=== PATIENT | male | born 1960 | race Caucasian/White ===

== ENCOUNTER 2018-04-09 08:23 | Inpatient (IN) | payer OTHER ==
[2018-04-09 09:36] VITALS: BMI 25.7
--- NOTE | 2018-04-09 10:19 | HP ---
CIWA Score Nausea/Vomitin Muscle Tremors: 2 Anxiety: 2 Agitation: 3 Paroxysmal Sweats: 3 Orientation: 0-Oriented Tacttile Disturbances: 0-None Auditory Disturbances: 0-None Visual Disturbances: 0-None Headache: 0-None Present CIWA-Ar Total Score: 12 - Admission Criteria [facility] Guidelines: Admission for Medically Managed Detox: Requires at least one of the followin. CIWA greater than 12 2. Seizures within the past 24 hours 3. Delirium tremens within the past 24 hours 4. Hallucinations within the past 24 hours 5. Acute intervention needed for co occurring medical disorder 6. Acute intervention needed for co occurring psychiatric disorder 7. Severe withdrawal that cannot be handled at a lower level of care (continued vomiting, continued diarrhea, abnormal vital signs) requiring intravenous medication and/or fluids 8. Patient presents the following: Acute intervention needed for co-occurring med or psych disorder (pt reports blackouts, has co-morbities. is irritable at this time, last drink was yesterday before he went to the ED and states he "drinks round the clock".) Admission Criteria Met: Admission criteria met Admission ROS [facility] Chief Complaint: "I am here for detox from alcohol" Allergies/Adverse Reactions: Allergies Allergy/AdvReac Type Severity Reaction Status Date / Time No Known Allergies Allergy Verified 04/09/18 08:42 History of Present Illness: 57 y/o male with a long hx of alcohol addiction presents today for detox. Pt is A & O x 3 at this time, was last here in December 2017 for detox (6N) but states he does not remember that visit. Pt also denies previous detox experiences. Pt was at [facility] last night for alcohol intoxication from where he was brought here by Erik. pt's tachy (HR 106), denies current chest pains, discomfort nor palpitations Pt denies hx of withdrawal-induced seizures but endorses blackouts with his last blackout "a couple of months" ago. pt's utox positive for Bzo; d/c paperwork confirms he got valium and librium at [facility] Pt denies prior nor current suicidal ideation nor attempt. Med hx - Lung CA, MS, L sided defibrilator-pacemaker,,DM 2, HTN, High cholesterol, COPD, Hesitancy Psych hx - Bipolar, Depression, Anxiety (last saw his psych MD about a month ago). Pt is on meds for these conditions and states he is complaint with his meds. CIWA score of 12, pt has co-morbidities, is irritable at this time, last drink was yesterday before he went to the ED and states he "drinks round the clock". Exam Limitations: No Limitations (irritable) - Ebola screening Have you traveled outside of the country in the last 21 days: No Have you had contact with anyone from an Ebola affected area: No Have you been sick,other than usual withdrawal symptoms: No - Review of Systems Constitutional: No Symptoms Reported EENT: reports: Dental Problems (missing upper teeth), Other (involuntary tongue movements) Respiratory: reports: No Symptoms reported Cardiac: reports: Irregular Heart Rate GI: reports: No Symptoms Reported : reports: No Symptoms Reported Musculoskeletal: reports: Back Pain, Other (herniated disc - lower vertebrae) Integumentary: reports: No Symptoms Reported, Dryness Neuro: reports: No Symptoms reported Endocrine: reports: No Symptoms Reported Hematology: reports: No Symptoms Reported Psychiatric: reports: Orientated x3, Agitated Other Systems: Reviewed and Negative Patient History - Patient Medical History Hx Anemia: No Hx Asthma: No Hx Chronic Obstructive Pulmonary Disease (COPD): Yes Hx Cancer: Yes (Lung CA) Hx Cardiac Disorders: Yes (pace ) Hx Congestive Heart Failure: No Hx Hypertension: Yes Hx Hypercholesterolemia: Yes Hx Pacemaker: Yes (LAST CHECKED 2 MONTHS AGO) HX Cerebrovascular Accident: No Hx Seizures: No Hx Dementia: No Hx Diabetes: Yes (f/a 234 mg/dL) Hx Gastrointestinal Disorders: No Hx Liver Disease: No Hx Genitourinary Disorders: No Hx Sexually Transmitted Disorders: No Hx Renal Disease (ESRD): No Hx Thyroid Disease: No Hx Human Immunodeficiency Virus (HIV): No Hx Hepatitis C: No Hx Depression: Yes Hx Suicide Attempt: No Hx Bipolar Disorder: Yes Hx Schizophrenia: No - Patient Surgical History Past Surgical History: Yes Hx Neurologic Surgery: No Hx Cataract Extraction: No Hx Cardiac Surgery: Yes (PACE MAKER 2011) Hx Lung Surgery: No Hx Breast Surgery: No Hx Breast Biopsy: No Hx Abdominal Surgery: No Hx Appendectomy: Yes Hx Cholecystectomy: No Hx Genitourinary Surgery: No Hx Section: No Hx Orthopedic Surgery: Yes (LEFT HIP) Hx Hysterectomy: No Other Surgical History: REPAIR OF PYLOR STENOSIS Anesthesia Reaction: No - PPD History Previous Implant?: Yes Documented Results: Negative w/proof Implanted On Prior [facility] Admission?: Yes Date: 12/19/17 PPD to be Administered?: No - Reproductive History Patient is a Female of Child Bearing Age (11 -55 yrs old): No Patient : No - Smoking Cessation Smoking history: Current every day smoker Have you smoked in the past 12 months: Yes Aproximately how many cigarettes per day: 20 Cigars Per Day: 0 Hx Chewing Tobacco Use: No Initiated information on smoking cessation: Yes 'Breaking Loose' booklet given: 04/09/18 - Substance & Tx. History Hx Alcohol Use: Yes Hx Substance Use: No Substance Use Type: Alcohol Hx Substance Use Treatment: Yes - Substances Abused Alcohol Route: Oral Frequency: Daily Amount used: 20 24oz cans of beers Age of first use: 15 Date of Last Use: 04/08/18 Family Disease History - Family Disease History Family Disease History: Diabetes: Father (), Heart Disease: Father, Other: Father, Brother (ALCOHOLIC) Admission Physical Exam S - Vital Signs Vital Signs: Vital Signs - 24 hr 04/09/18 08:44 Temperature 97.3 F L Pulse Rate 106 H Respiratory 20 Rate Blood Pressure 132/72 - Physical General Appearance: Yes: Disheveled, Moderate Distress, Irritable HEENTM: Yes: Other (missing upper teeth, has discolored teeth) Respiratory: Yes: Lungs Clear, No Respiratory Distress, No Accessory Muscle Use Neck: Yes: No masses,lesions,Nodules, Trachea in good position Breast: Yes: Breast Exam Deferred Cardiology: Yes: Tachycardia, Irregularly Irregular (has a defibrilator and a pacemaker) Abdominal: Yes: Non Tender, Distended, Other (skin graft to upper area, echymosis to LLQ s/p subQ injections) Genitourinary: Yes: Hesitency (on flomax) Back: Yes: Normal Inspection Musculoskeletal: Yes: full range of Motion, Gait Steady Extremities: Yes: Normal Capillary Refill, Normal Inspection, Normal Range of Motion Neurological: Yes: Alert, Normal Response Integumentary: Yes: Dry (dry flaky skin) Lymphatic: Yes: Other (on blood thinner) - Diagnostic (1) Alcohol-induced mood disorder Current Visit: No Status: Acute (2) Alcohol-induced sleep disorder Current Visit: No Status: Acute (3) DM2 (diabetes mellitus, type 2) Current Visit: No Status: Acute (4) Uncomplicated alcohol dependence Current Visit: No Status: Acute (5) AICD (automatic cardioverter/defibrillator) present Current Visit: No Status: Chronic (6) Diabetes Current Visit: No Status: Chronic Qualifiers: Diabetes mellitus type: type 2 (7) HLD (hyperlipidemia) Current Visit: No Status: Chronic Qualifiers: Hyperlipidemia type: unspecified Qualified Code(s): E78.5 - Hyperlipidemia , unspecified (8) HTN (hypertension) Current Visit: No Status: Chronic Qualifiers: Hypertension type: essential hypertension Qualified Code(s): I10 - Essential (primary) hypertension (9) History of myocardial infarction Current Visit: No Status: Chronic (10) Nicotine dependence Current Visit: No Status: Chronic Qualifiers: Nicotine product type: cigarettes Substance use status: uncomplicated Qualified Code(s): F17.210 - Nicotine dependence, cigarettes, uncomplicated (11) Pacemaker Current Visit: No Status: Chronic (12) Substance induced mood disorder Current Visit: No Status: Suspected Cleared for Admission S - Detox or Rehab [facility] Level of Care: Medically Managed Detox Regimen/Protocol: Librium [facility] Breath Alcohol Content Breath Alcohol Content: 0 Urine Drug Screen - Results Drug Screen Negative: No Urine Drug Screen Results: BZO-Benzodiazepines
[2018-04-09] MEDS ORDERED: MAGNESIUM CITRATE 300 ML BOTTLE PO PRN (11:03)
[2018-04-09] MEDS ORDERED: IBUPROFEN 400 MG TABLET (FP) PO PRN (11:03)
[2018-04-09] MEDS ORDERED: MAG HYDROX/AL HYDROX/SIMETH 30 ML UNIT-DOSE CUP PO PRN (11:03)
[2018-04-09] MEDS ORDERED: LOPERAMIDE HCL 2 MG CAPSULE PO PRN (11:03)
[2018-04-09] MEDS ORDERED: chlordiazePOXIDE HCL 25 MG CAPSULE PO PRN (11:03)
[2018-04-09] MEDS ORDERED: MENTHOL/PHENOL 1 EACH UD MM PRN (11:03)
[2018-04-09] MEDS ORDERED: guaiFENesin/D-METHORPHAN HB 10 ML UNIT-DOSE CUPS PO PRN (11:03)
[2018-04-09] MEDS ORDERED: NICOTINE POLACRILEX 2 MG GUM BC PRN (11:03)
[2018-04-09] MEDS ORDERED: MAGNESIUM HYDROX 2400MG/30ML ORAL SUSPENSION 30 ML CUP PO PRN (11:03)
[2018-04-09] MEDS ORDERED: P-EPHED 60MG/TRIPROLIDI 2.5MG TABLET PO PRN (11:03)
[2018-04-09] MEDS ORDERED: PATIENT'S OWN MEDICATION (NON-FORMULARY) (Selenium Sulfide 1 APPLIC) TP SCH (11:30)
[2018-04-09] MEDS ORDERED: PATIENT'S OWN MEDICATION (NON-FORMULARY) (Lisinopril [Zestril] 2.5 MG) PO SCH (11:30)
--- NOTE | 2018-04-09 11:31 | PN ---
[facility] Progress Note Note: motrin prn discontinued as pt is on plavix and ASA for cardiac condition. Gabapentin and Tylenol prn for pain. Psych consult re- pt's Bipolar/schizo/depression/anxiety hx and for continuation of pt's psych meds
[2018-04-09] MEDS: PANTOPRAZOLE 40 MG TABLET (FP) PO SCH ×2 (13:01→22:08)
[2018-04-09] MEDS: ASPIRIN COATED 81 MG TABLET.EC PO SCH (13:01)
[2018-04-09] MEDS: GABAPENTIN 300 MG CAPSULE (FP) PO SCH ×2 (13:01→22:08)
[2018-04-09] MEDS: CLOPIDOGREL BISULFATE 75 MG TABLET (FP) PO SCH (13:01)
[2018-04-09] MEDS: chlordiazePOXIDE HCL 25 MG CAPSULE PO SCH ×3 (13:01→22:08)
[2018-04-09] MEDS: LIDOCAINE 5% TOPICAL PATCH TP SCH (13:06)
[2018-04-09] MEDS: NICOTINE 21 MG/24 HOURS TOPICAL PATCH TD SCH (13:11)
[2018-04-09] MEDS ORDERED: SELENIUM SULFIDE 2.5% LOTION 4 OZ. TP SCH (13:45)
[2018-04-09] MEDS: INSULIN SLIDING SCALE (NOVOLOG) 1 VIAL SQ SCH ×2 (17:07→22:37)
[2018-04-09] MEDS: metFORMIN HCL 500 MG TABLET (FP) PO SCH (17:10)
[2018-04-09 18:10] LABS: URINE APPEARANCE CLEAR; URINE BILIRUBIN NEGATIVE (<2.0 mg/dL); URINE COLOR STRAW; URINE GLUCOSE (UA) 1+ (NEGATIVE); URINE KETONE NEGATIVE (NEGATIVE); URINE LEUK ESTERASE NEGATIVE (NEGATIVE); URINE NITRITE NEGATIVE (NEGATIVE); URINE PROTEIN NEGATIVE (NEGATIVE); URINE UROBILINOGEN NEGATIVE mg/dL (0.2-1.0)
[2018-04-09] MEDS: TAMSULOSIN HCL 0.4 MG CAP PO SCH (22:06)
[2018-04-09] MEDS: THIAMINE HCL 100 MG TABLET (FP) PO SCH (22:06)
[2018-04-09] MEDS: CARVEDILOL 3.125 MG TABLET (FP) PO SCH ×2 (22:07)
[2018-04-09] MEDS: ATORVASTATIN CA 20 MG TABLET (FP) PO SCH (22:08)
[2018-04-09] MEDS: SELENIUM SULFIDE 2.5% LOTION 4 OZ. TP SCH (22:10)
[2018-04-10] MEDS: chlordiazePOXIDE HCL 25 MG CAPSULE PO SCH ×4 (05:43→22:02)
[2018-04-10] MEDS: GABAPENTIN 300 MG CAPSULE (FP) PO SCH ×3 (05:43→21:28)
[2018-04-10] MEDS: metFORMIN HCL 500 MG TABLET (FP) PO SCH ×2 (07:04→17:15)
[2018-04-10] MEDS: INSULIN SLIDING SCALE (NOVOLOG) 1 VIAL SQ SCH ×5 (07:05→21:32)
[2018-04-10 10:18] LABS: HEMATOCRIT 29.2 % (35.4-49); HEMOGLOBIN 8.9 GM/dL (11.7-16.9); MCH 22.7 pg (25.7-33.7); MCHC 30.4 g/dl (32.0-35.9); MEAN CELL VOLUME 74.5 fl (80-96); MEAN PLT VOLUME 8.4 fl (7.5-11.1); PLATELET COUNT 198 K/MM3 (134-434); RBC 3.92 M/mm3 (4.00-5.60); RDW 16.9 % (11.9-15.9)
[2018-04-10 10:33] LABS: ALK PHOS 112 U/L (45-117); ANION GAP 7 MMOL/L (8-16); BILIRUBIN,TOTAL 0.2 mg/dL (0.2-1); BLOOD UREA NITROGEN 17 mg/dL (7-18); CALCIUM 8.8 mg/dL (8.5-10.1); CHLORIDE 103 mmol/L (98-107); CO2 27 mmol/L (21-32); CREATININE 0.5 mg/dL (0.55-1.3); GLUCOSE,RANDOM 159 mg/dL (74-106); POTASSIUM 3.8 mmol/L (3.5-5.1); SGOT/AST 14 U/L (15-37); SGPT/ALT 25 U/L (13-61); SODIUM 138 mmol/L (136-145); TOT PROT 6.2 g/dl (6.4-8.2)
[2018-04-10] MEDS: ASPIRIN COATED 81 MG TABLET.EC PO SCH (10:35)
[2018-04-10] MEDS: CLOPIDOGREL BISULFATE 75 MG TABLET (FP) PO SCH (10:35)
[2018-04-10] MEDS: PANTOPRAZOLE 40 MG TABLET (FP) PO SCH (10:35)
[2018-04-10] MEDS: PRENATAL VITAMINS W/ FOLIC ACID TABLET (FP) PO SCH (10:35)
[2018-04-10] MEDS: LISINOPRIL 5 MG TABLET (FP) PO SCH (10:36)
[2018-04-10] MEDS: NICOTINE 21 MG/24 HOURS TOPICAL PATCH TD SCH (10:59)
[2018-04-10] MEDS: SELENIUM SULFIDE 2.5% LOTION 4 OZ. TP SCH ×2 (11:01→21:31)
[2018-04-10] MEDS: CARVEDILOL 3.125 MG TABLET (FP) PO SCH ×2 (11:19→21:26)
[2018-04-10] MEDS: LIDOCAINE 5% TOPICAL PATCH TP SCH (11:19)
--- NOTE | 2018-04-10 13:03 | CONSULT ---
[facility] Psychiatric Consult - Data Date of interview: 04/10/18 Admission source: [facility] Identifying data: Readmission to [facility] for this 57 y/o male seeking detoxification treatment, on , for alcohol dependence. 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 Substance Abuse History: Confirmed by the patient in this interview. Details in current [facility] report : Smoking history: Current every day smoker. Have you smoked in the past 12 months: Yes. Aproximately how many cigarettes per day: 20. Cigars Per Day: 0. Hx Chewing Tobacco Use: No. Initiated information on smoking cessation: Yes. 'Breaking Loose' booklet given: 04/09/18. - Substance & Tx. History. Hx Alcohol Use: Yes. Hx Substance Use: No. Substance Use Type : Alcohol. Hx Substance Use Treatment: Yes. - Substances Abused. Alcohol. Route: Oral. Frequency: Daily. Amount used: 20 24oz cans of beers. Age of first use: 15. Date of Last Use: 04/08/18 Medical History: Dyslipidemia, lung cancer, diabetes mellitus, hypertension, COPD, history of myocardial infarction (stent placement + pacemaker/ defibrillator in situ), antecedent of appendectomy and a history surgery ( pyloric stenosis) + orthosurgery (fracture left hip). Psychiatric History: No reported history of psychiatric hospitalizations. Patient admits to the diagnosis of Bipolar Disorder. Mr Soni is noted as an indifferent, irritable and hostile historian. " I don't know the names of my psychiatric medications. I see a psychiatrist at the [facility]. I take a lot of medications ". Review of pharmacy claims of 03/20/18 + 03/30/18 yields evidence of refills for seroquel 400 mg/hs # 30 days + remeron 7.5 mg/hs # 30 days + prozac 40 mg # 30 days. Patient denies history of suicide attempts. Physical/Sexual Abuse/Trauma History: Not discussed. Additional Comment: Urine Drug Screen Results: BZO-Benzodiazepines. Noted. Mental Status Exam - Mental Status Exam Alert and Oriented to: Time, Place, Person Cognitive Function: Grossly Intact Patient Appearance: Unkempt, Disheveled (tattoos on lrft arm + right forearm) Mood: Hostile, Nervous, Withdrawn, Irritable Affect: Mood Congruent, Constricted Patient Behavior: Fatigued, Cooperative (marginally cooperative) Speech Pattern: Clear Voice Loudness: Normal Thought Process: Goal Oriented Hallucinations: Denies Suicidal Ideation: Denies Homicidal Ideation: Denies Insight/Judgement: Poor Sleep: Poorly, Difficulty falling asleep Appetite: Good Muscle strength/Tone: Normal Gait/Station: Normal Psychiatric Findings - Problem List ([place] 1, 2,3) (1) Alcohol dependence with uncomplicated withdrawal Current Visit: Yes Status: Acute (2) Nicotine dependence Current Visit: Yes Status: Acute Qualifiers: Nicotine product type: cigarettes Substance use status: uncomplicated Qualified Code(s): F17.210 - Nicotine dependence, cigarettes, uncomplicated (3) Substance induced mood disorder Current Visit: Yes Status: Acute (4) Bipolar disorder Current Visit: Yes Status: Chronic (5) Insomnia Current Visit: Yes Status: Acute - Initial Treatment Plan Initial Treatment Plan: Psychoeducation. Sleep hygiene. Detoxification in progress. Medications verified via review of pharmacy claims (see psychiatric history section). Will restart patient with seroquel 200 mg po hs (reduced) + remeron 7.5 mg po hs. Side effects/benefits of both drugs are discussed with the patient. Agrees to this careplan. Consent (verbal) given to MD. Titration of seroquel to 400 mg/hs will follow if no oversedation in next 24-48 hours. Observation.
[2018-04-10] MEDS: hydrOXYzine PAMOATE 25 MG CAPSULE (FP) PO PRN ×2 (15:21→19:59)
--- NOTE | 2018-04-10 16:00 | PN ---
[facility] CIWA - CIWA Score Nausea/Vomitin-No Nausea/No Vomiting Muscle Tremors: 4-Moderate,w/Arms Extend Anxiety: 3 Agitation: 3 Paroxysmal Sweats: 3 Orientation: 0-Oriented Tacttile Disturbances: 0-None Auditory Disturbances: 0-None Visual Disturbances: 0-None Headache: 0-None Present CIWA-Ar Total Score: 13 S Progress Note (SOAP) Subjective: Shakes sweats Objective: 04/10/18 15:58 A & O x 3 flushed Vital Signs Temperature 97.0 F L 04/10/18 13:13 Pulse Rate 101 H 04/10/18 13:13 Respiratory Rate 20 04/10/18 13:13 Blood Pressure 136/84 04/10/18 13:13 O2 Sat by Pulse Oximetry (%) Laboratory Last Values WBC 5.0 K/mm3 (4.0-10.0) 04/10/18 06:30 RBC 3.92 M/mm3 (4.00-5.60) L 04/10/18 06:30 Hgb 8.9 GM/dL (11.7-16.9) L 04/10/18 06:30 Hct 29.2 % (35.4-49) L D 04/10/18 06:30 MCV 74.5 fl (80-96) L 04/10/18 06:30 MCH 22.7 pg (25.7-33.7) L 04/10/18 06:30 MCHC 30.4 g/dl (32.0-35.9) L 04/10/18 06:30 RDW 16.9 % (11.9-15.9) H 04/10/18 06:30 Plt Count 198 K/MM3 (134-434) 04/10/18 06:30 MPV 8.4 fl (7.5-11.1) 04/10/18 06:30 Sodium 138 mmol/L (136-145) 04/10/18 06:30 Potassium 3.8 mmol/L (3.5-5.1) 04/10/18 06:30 Chloride 103 mmol/L (98-107) 04/10/18 06:30 Carbon Dioxide 27 mmol/L (21-32) 04/10/18 06:30 Anion Gap 7 MMOL/L (8-16) L 04/10/18 06:30 BUN 17 mg/dL (7-18) 04/10/18 06:30 Creatinine 0.5 mg/dL (0.55-1.3) L 04/10/18 06:30 Creat Clearance w eGFR > 60 (>60) 04/10/18 06:30 POC Glucometer 157 UNITS (80-120) 04/10/18 05:43 Random Glucose 159 mg/dL (74-106) H 04/10/18 06:30 Calcium 8.8 mg/dL (8.5-10.1) 04/10/18 06:30 Total Bilirubin 0.2 mg/dL (0.2-1) 04/10/18 06:30 AST 14 U/L (15-37) L 04/10/18 06:30 ALT 25 U/L (13-61) 04/10/18 06:30 Alkaline Phosphatase 112 U/L (45-117) 04/10/18 06:30 Total Protein 6.2 g/dl (6.4-8.2) L 04/10/18 06:30 Albumin 3.0 g/dl (3.4-5.0) L 04/10/18 06:30 Urine Color Straw 04/09/18 15:35 Urine Appearance Clear 04/09/18 15:35 Urine pH 6.0 (5.0-8.0) 04/09/18 15:35 Ur Specific [place] 1.016 (1.010-1.035) 04/09/18 15:35 Urine Protein Negative (NEGATIVE) 04/09/18 15:35 Urine Glucose (UA) 1+ (NEGATIVE) H 04/09/18 15:35 Urine Ketones Negative (NEGATIVE) 04/09/18 15:35 Urine Blood Negative (NEGATIVE) 04/09/18 15:35 Urine Nitrite Negative (NEGATIVE) 04/09/18 15:35 Urine Bilirubin Negative (<2.0 mg/dL) 04/09/18 15:35 Urine Urobilinogen Negative mg/dL (0.2-1.0) 04/09/18 15:35 Ur Leukocyte Esterase Negative (NEGATIVE) 04/09/18 15:35 RPR Titer Nonreactive (NONREACTIVE) 04/10/18 06:30 low H & H, RBC hyperglycemia Assessment: 04/10/18 16:01 withdrawal sx anemia Plan: continue detox iron supplements continue with hyperglycemic agents
[2018-04-10] MEDS: FERROUS SO4 325 MG TABLET (FP) PO SCH (17:17)
[2018-04-10] MEDS: ACETAMINOPHEN 325 MG TABLET (FP) PO PRN ×2 (17:18→22:27)
[2018-04-10] MEDS: CYCLOBENZAPRINE HCL 5 MG TABLET PO SCH (21:26)
[2018-04-10] MEDS: THIAMINE HCL 100 MG TABLET (FP) PO SCH (21:26)
[2018-04-10] MEDS: TAMSULOSIN HCL 0.4 MG CAP PO SCH (21:27)
[2018-04-10] MEDS: RANITIDINE HCL 150 MG TABLET (FP) PO SCH (21:27)
[2018-04-10] MEDS: MIRTAZAPINE 15 MG TABLET (FP) PO SCH (21:27)
[2018-04-10] MEDS: ATORVASTATIN CA 20 MG TABLET (FP) PO SCH (21:27)
[2018-04-10] MEDS: QUEtiapine FUMARATE 200 MG TABLET PO SCH (21:28)
[2018-04-10] MEDS: MELATONIN 5 MG TABLETS PO PRN (22:03)
[2018-04-11] MEDS ORDERED: ALBUTEROL SO4 2.5/IPRATROPIUM 0.5 INH SOL 3 ML VIAL.NEB. NEB PRN (00:25)
[2018-04-11] MEDS: chlordiazePOXIDE HCL 25 MG CAPSULE PO SCH (06:01)
[2018-04-11] MEDS: INSULIN SLIDING SCALE (NOVOLOG) 1 VIAL SQ SCH ×4 (06:25→22:33)
[2018-04-11] MEDS: CLOPIDOGREL BISULFATE 75 MG TABLET (FP) PO SCH (06:26)
[2018-04-11] MEDS: metFORMIN HCL 500 MG TABLET (FP) PO SCH ×2 (06:27→16:46)
[2018-04-11] MEDS: GABAPENTIN 300 MG CAPSULE (FP) PO SCH ×3 (06:27→22:01)
[2018-04-11] MEDS: CYCLOBENZAPRINE HCL 5 MG TABLET PO SCH ×3 (06:27→22:01)
[2018-04-11] MEDS: FERROUS SO4 325 MG TABLET (FP) PO SCH ×2 (10:17→16:46)
[2018-04-11] MEDS: SELENIUM SULFIDE 2.5% LOTION 4 OZ. TP SCH ×2 (10:17→22:02)
[2018-04-11] MEDS: FLUoxetine HCL 20 MG CAPSULE (FP) PO SCH (10:17)
[2018-04-11] MEDS: RANITIDINE HCL 150 MG TABLET (FP) PO SCH ×2 (10:18→22:02)
[2018-04-11] MEDS: CARVEDILOL 3.125 MG TABLET (FP) PO SCH ×2 (10:18→22:01)
[2018-04-11] MEDS: NICOTINE 21 MG/24 HOURS TOPICAL PATCH TD SCH (10:18)
[2018-04-11] MEDS: PRENATAL VITAMINS W/ FOLIC ACID TABLET (FP) PO SCH (10:18)
[2018-04-11] MEDS: LISINOPRIL 5 MG TABLET (FP) PO SCH (10:18)
[2018-04-11] MEDS: ASPIRIN COATED 81 MG TABLET.EC PO SCH (10:18)
[2018-04-11] MEDS: chlordiazePOXIDE 5 MG CAPSULE PO SCH ×3 (10:19→22:01)
[2018-04-11] MEDS: LIDOCAINE 5% TOPICAL PATCH TP SCH (10:21)
--- NOTE | 2018-04-11 14:37 | PN ---
[facility] CIWA - CIWA Score Nausea/Vomitin-Mild Nausea/No Vomiting Muscle Tremors: 2 Anxiety: 2 Agitation: 2 Paroxysmal Sweats: 3 Orientation: 0-Oriented Tacttile Disturbances: 0-None Auditory Disturbances: 0-None Visual Disturbances: 0-None Headache: 0-None Present CIWA-Ar Total Score: 10 [facility] Progress Note (SOAP) Subjective: Sweating, interrupted sleep, anxious Objective: 04/11/18 14:33 Last Vital Signs Temp Pulse Resp BP Pulse Ox 97.0 F L 83 18 132/87 04/11/18 09:30 04/11/18 09:30 04/11/18 09:30 04/11/18 09:30 Laboratory Tests 04/09/18 04/09/18 04/09/18 09:15 15:35 16:45 WBC RBC Hgb Hct MCV MCH MCHC RDW Plt Count MPV Sodium Potassium Chloride Carbon Dioxide Anion Gap BUN Creatinine Creat Clearance w eGFR POC Glucometer 234 220 Random Glucose Calcium Total Bilirubin AST ALT Alkaline Phosphatase Total Protein Albumin Urine Color Straw Urine Appearance Clear Urine pH 6.0 Ur Specific [place] 1.016 Urine Protein Negative Urine Glucose (UA) 1+ H Urine Ketones Negative Urine Blood Negative Urine Nitrite Negative Urine Bilirubin Negative Urine Urobilinogen Negative Ur Leukocyte Esterase Negative RPR Titer 04/09/18 04/10/18 04/10/18 21:53 05:43 06:30 WBC RBC Hgb Hct MCV MCH MCHC RDW Plt Count MPV Sodium 138 Potassium 3.8 Chloride 103 Carbon Dioxide 27 Anion Gap 7 L BUN 17 Creatinine 0.5 L Creat Clearance w eGFR > 60 POC Glucometer 141 157 Random Glucose 159 H Calcium 8.8 Total Bilirubin 0.2 AST 14 L ALT 25 Alkaline Phosphatase 112 Total Protein 6.2 L Albumin 3.0 L Urine Color Urine Appearance Urine pH Ur Specific [place] Urine Protein Urine Glucose (UA) Urine Ketones Urine Blood Urine Nitrite Urine Bilirubin Urine Urobilinogen Ur Leukocyte Esterase RPR Titer 04/10/18 04/10/18 04/10/18 06:30 06:30 16:23 WBC 5.0 RBC 3.92 L Hgb 8.9 L Hct 29.2 L D MCV 74.5 L MCH 22.7 L MCHC 30.4 L RDW 16.9 H Plt Count 198 MPV 8.4 Sodium Potassium Chloride Carbon Dioxide Anion Gap BUN Creatinine Creat Clearance w eGFR POC Glucometer 160 Random Glucose Calcium Total Bilirubin AST ALT Alkaline Phosphatase Total Protein Albumin Urine Color Urine Appearance Urine pH Ur Specific [place] Urine Protein Urine Glucose (UA) Urine Ketones Urine Blood Urine Nitrite Urine Bilirubin Urine Urobilinogen Ur Leukocyte Esterase RPR Titer Nonreactive 04/10/18 04/11/18 04/11/18 21:01 06:14 11:13 WBC RBC Hgb Hct MCV MCH MCHC RDW Plt Count MPV Sodium Potassium Chloride Carbon Dioxide Anion Gap BUN Creatinine Creat Clearance w eGFR POC Glucometer 167 169 222 Random Glucose Calcium Total Bilirubin AST ALT Alkaline Phosphatase Total Protein Albumin Urine Color Urine Appearance Urine pH Ur Specific [place] Urine Protein Urine Glucose (UA) Urine Ketones Urine Blood Urine Nitrite Urine Bilirubin Urine Urobilinogen Ur Leukocyte Esterase RPR Titer Labs reviewed: elevated glucose noted Assessment: 04/11/18 14:34 Withdrawal symptoms Noted with hyperglycemia Plan: Continue detox Encouraged PO water intake Hyperglycemia: secondary to DMT2; continue regimen
[2018-04-11] MEDS: hydrOXYzine PAMOATE 25 MG CAPSULE (FP) PO PRN (20:04)
[2018-04-11] MEDS: THIAMINE HCL 100 MG TABLET (FP) PO SCH (22:00)
[2018-04-11] MEDS: QUEtiapine FUMARATE 200 MG TABLET PO SCH (22:01)
[2018-04-11] MEDS: ATORVASTATIN CA 20 MG TABLET (FP) PO SCH (22:01)
[2018-04-11] MEDS: TAMSULOSIN HCL 0.4 MG CAP PO SCH (22:01)
[2018-04-11] MEDS: MIRTAZAPINE 15 MG TABLET (FP) PO SCH (22:02)
[2018-04-11] MEDS: MELATONIN 5 MG TABLETS PO PRN (23:36)
[2018-04-12] MEDS: hydrOXYzine PAMOATE 25 MG CAPSULE (FP) PO PRN ×2 (00:40→21:26)
[2018-04-12] MEDS: chlordiazePOXIDE 5 MG CAPSULE PO SCH (05:35)
[2018-04-12] MEDS: GABAPENTIN 300 MG CAPSULE (FP) PO SCH ×3 (05:36→21:28)
[2018-04-12] MEDS: CYCLOBENZAPRINE HCL 5 MG TABLET PO SCH ×3 (05:36→21:28)
[2018-04-12] MEDS: CLOPIDOGREL BISULFATE 75 MG TABLET (FP) PO SCH (07:21)
[2018-04-12] MEDS: metFORMIN HCL 500 MG TABLET (FP) PO SCH ×2 (07:21→17:14)
[2018-04-12] MEDS: INSULIN SLIDING SCALE (NOVOLOG) 1 VIAL SQ SCH ×4 (07:21→21:12)
[2018-04-12] MEDS: FERROUS SO4 325 MG TABLET (FP) PO SCH ×2 (07:22→17:57)
[2018-04-12] MEDS: NICOTINE 21 MG/24 HOURS TOPICAL PATCH TD SCH (10:24)
[2018-04-12] MEDS: LIDOCAINE 5% TOPICAL PATCH TP SCH (10:24)
[2018-04-12] MEDS: chlordiazePOXIDE HCL 10 MG CAPSULE PO SCH ×3 (10:24→22:02)
[2018-04-12] MEDS: CARVEDILOL 3.125 MG TABLET (FP) PO SCH ×2 (10:24→21:27)
[2018-04-12] MEDS: FLUoxetine HCL 20 MG CAPSULE (FP) PO SCH (10:24)
[2018-04-12] MEDS: ASPIRIN COATED 81 MG TABLET.EC PO SCH (10:24)
[2018-04-12] MEDS: LISINOPRIL 5 MG TABLET (FP) PO SCH (10:24)
[2018-04-12] MEDS: RANITIDINE HCL 150 MG TABLET (FP) PO SCH ×2 (10:24→21:28)
[2018-04-12] MEDS: PRENATAL VITAMINS W/ FOLIC ACID TABLET (FP) PO SCH (10:24)
--- NOTE | 2018-04-12 10:24 | PN ---
[facility] Progress Note (SOAP) Subjective: feeling better no tremor less sweat no gi distress Objective: 04/12/18 10:23 Vital Signs Temperature 95.8 F L 04/12/18 09:18 Pulse Rate 118 H 04/12/18 09:18 Respiratory Rate 20 04/12/18 09:18 Blood Pressure 126/83 04/12/18 09:18 O2 Sat by Pulse Oximetry (%) Laboratory Last Values WBC 5.0 K/mm3 (4.0-10.0) 04/10/18 06:30 RBC 3.92 M/mm3 (4.00-5.60) L 04/10/18 06:30 Hgb 8.9 GM/dL (11.7-16.9) L 04/10/18 06:30 Hct 29.2 % (35.4-49) L D 04/10/18 06:30 MCV 74.5 fl (80-96) L 04/10/18 06:30 MCH 22.7 pg (25.7-33.7) L 04/10/18 06:30 MCHC 30.4 g/dl (32.0-35.9) L 04/10/18 06:30 RDW 16.9 % (11.9-15.9) H 04/10/18 06:30 Plt Count 198 K/MM3 (134-434) 04/10/18 06:30 MPV 8.4 fl (7.5-11.1) 04/10/18 06:30 Sodium 138 mmol/L (136-145) 04/10/18 06:30 Potassium 3.8 mmol/L (3.5-5.1) 04/10/18 06:30 Chloride 103 mmol/L (98-107) 04/10/18 06:30 Carbon Dioxide 27 mmol/L (21-32) 04/10/18 06:30 Anion Gap 7 MMOL/L (8-16) L 04/10/18 06:30 BUN 17 mg/dL (7-18) 04/10/18 06:30 Creatinine 0.5 mg/dL (0.55-1.3) L 04/10/18 06:30 Creat Clearance w eGFR > 60 (>60) 04/10/18 06:30 POC Glucometer 167 UNITS (80-120) 04/12/18 05:35 Random Glucose 159 mg/dL (74-106) H 04/10/18 06:30 Calcium 8.8 mg/dL (8.5-10.1) 04/10/18 06:30 Total Bilirubin 0.2 mg/dL (0.2-1) 04/10/18 06:30 AST 14 U/L (15-37) L 04/10/18 06:30 ALT 25 U/L (13-61) 04/10/18 06:30 Alkaline Phosphatase 112 U/L (45-117) 04/10/18 06:30 Total Protein 6.2 g/dl (6.4-8.2) L 04/10/18 06:30 Albumin 3.0 g/dl (3.4-5.0) L 04/10/18 06:30 Urine Color Straw 04/09/18 15:35 Urine Appearance Clear 04/09/18 15:35 Urine pH 6.0 (5.0-8.0) 04/09/18 15:35 Ur Specific [place] 1.016 (1.010-1.035) 04/09/18 15:35 Urine Protein Negative (NEGATIVE) 04/09/18 15:35 Urine Glucose (UA) 1+ (NEGATIVE) H 04/09/18 15:35 Urine Ketones Negative (NEGATIVE) 04/09/18 15:35 Urine Blood Negative (NEGATIVE) 04/09/18 15:35 Urine Nitrite Negative (NEGATIVE) 04/09/18 15:35 Urine Bilirubin Negative (<2.0 mg/dL) 04/09/18 15:35 Urine Urobilinogen Negative mg/dL (0.2-1.0) 04/09/18 15:35 Ur Leukocyte Esterase Negative (NEGATIVE) 04/09/18 15:35 RPR Titer Nonreactive (NONREACTIVE) 04/10/18 06:30 lab noted Assessment: 04/12/18 10:24 mild withdrawal sx Plan: medically supervised detox
[2018-04-12] MEDS: SELENIUM SULFIDE 2.5% LOTION 4 OZ. TP SCH ×2 (10:25→21:29)
[2018-04-12] MEDS ORDERED: INSULIN SLIDING SCALE (NOVOLOG) 1 VIAL SQ ONE (17:20)
[2018-04-12] MEDS: THIAMINE HCL 100 MG TABLET (FP) PO SCH (21:26)
[2018-04-12] MEDS: MIRTAZAPINE 15 MG TABLET (FP) PO SCH (21:28)
[2018-04-12] MEDS: ATORVASTATIN CA 20 MG TABLET (FP) PO SCH (21:28)
[2018-04-12] MEDS: TAMSULOSIN HCL 0.4 MG CAP PO SCH (21:28)
[2018-04-12] MEDS ORDERED: QUEtiapine FUMARATE 300 MG TABLET PO SCH (22:00)
[2018-04-13] MEDS: chlordiazePOXIDE HCL 10 MG CAPSULE PO SCH (05:51)
[2018-04-13] MEDS: GABAPENTIN 300 MG CAPSULE (FP) PO SCH (05:51)
[2018-04-13] MEDS: CYCLOBENZAPRINE HCL 5 MG TABLET PO SCH (05:51)
[2018-04-13] MEDS: metFORMIN HCL 500 MG TABLET (FP) PO SCH (07:23)
[2018-04-13] MEDS: CLOPIDOGREL BISULFATE 75 MG TABLET (FP) PO SCH (07:24)
[2018-04-13] MEDS: INSULIN SLIDING SCALE (NOVOLOG) 1 VIAL SQ SCH ×2 (07:24→11:24)
[2018-04-13] MEDS: FERROUS SO4 325 MG TABLET (FP) PO SCH (07:24)
[2018-04-13 09:17] VITALS: BP 105/70; PULSE 66; TEMP 96.6
--- NOTE | 2018-04-13 09:24 | DS ---
[facility] Detox Discharge Summary Admission Date: 04/09/18 Discharge Date: 04/13/18 - History Present History: Alcohol Dependence Additional Comments: 57 years old male admitted on 04/09/18 for alcohol withdrawal sx completed detox regimen tolerated well alert oriented x 3 no acute distress aftercare [facility] - Physical Exam Results Vital Signs: Vital Signs Temperature 96.6 F L 04/13/18 09:16 Pulse Rate 66 04/13/18 09:16 Respiratory Rate 18 04/13/18 09:16 Blood Pressure 105/70 04/13/18 09:16 O2 Sat by Pulse Oximetry (%) Pertinent Admission Physical Exam Findings: alcohol withdrawal sx Vital Signs Temperature 96.6 F L 04/13/18 09:16 Pulse Rate 66 04/13/18 09:16 Respiratory Rate 18 04/13/18 09:16 Blood Pressure 105/70 04/13/18 09:16 O2 Sat by Pulse Oximetry (%) Laboratory Last Values WBC 5.0 K/mm3 (4.0-10.0) 04/10/18 06:30 RBC 3.92 M/mm3 (4.00-5.60) L 04/10/18 06:30 Hgb 8.9 GM/dL (11.7-16.9) L 04/10/18 06:30 Hct 29.2 % (35.4-49) L D 04/10/18 06:30 MCV 74.5 fl (80-96) L 04/10/18 06:30 MCH 22.7 pg (25.7-33.7) L 04/10/18 06:30 MCHC 30.4 g/dl (32.0-35.9) L 04/10/18 06:30 RDW 16.9 % (11.9-15.9) H 04/10/18 06:30 Plt Count 198 K/MM3 (134-434) 04/10/18 06:30 MPV 8.4 fl (7.5-11.1) 04/10/18 06:30 Sodium 138 mmol/L (136-145) 04/10/18 06:30 Potassium 3.8 mmol/L (3.5-5.1) 04/10/18 06:30 Chloride 103 mmol/L (98-107) 04/10/18 06:30 Carbon Dioxide 27 mmol/L (21-32) 04/10/18 06:30 Anion Gap 7 MMOL/L (8-16) L 04/10/18 06:30 BUN 17 mg/dL (7-18) 04/10/18 06:30 Creatinine 0.5 mg/dL (0.55-1.3) L 04/10/18 06:30 Creat Clearance w eGFR > 60 (>60) 04/10/18 06:30 POC Glucometer 167 UNITS (80-120) 04/13/18 05:50 Random Glucose 159 mg/dL (74-106) H 04/10/18 06:30 Calcium 8.8 mg/dL (8.5-10.1) 04/10/18 06:30 Total Bilirubin 0.2 mg/dL (0.2-1) 04/10/18 06:30 AST 14 U/L (15-37) L 04/10/18 06:30 ALT 25 U/L (13-61) 04/10/18 06:30 Alkaline Phosphatase 112 U/L (45-117) 04/10/18 06:30 Total Protein 6.2 g/dl (6.4-8.2) L 04/10/18 06:30 Albumin 3.0 g/dl (3.4-5.0) L 04/10/18 06:30 Urine Color Straw 04/09/18 15:35 Urine Appearance Clear 04/09/18 15:35 Urine pH 6.0 (5.0-8.0) 04/09/18 15:35 Ur Specific [place] 1.016 (1.010-1.035) 04/09/18 15:35 Urine Protein Negative (NEGATIVE) 04/09/18 15:35 Urine Glucose (UA) 1+ (NEGATIVE) H 04/09/18 15:35 Urine Ketones Negative (NEGATIVE) 04/09/18 15:35 Urine Blood Negative (NEGATIVE) 04/09/18 15:35 Urine Nitrite Negative (NEGATIVE) 04/09/18 15:35 Urine Bilirubin Negative (<2.0 mg/dL) 04/09/18 15:35 Urine Urobilinogen Negative mg/dL (0.2-1.0) 04/09/18 15:35 Ur Leukocyte Esterase Negative (NEGATIVE) 04/09/18 15:35 RPR Titer Nonreactive (NONREACTIVE) 04/10/18 06:30 lab noted - Treatment Hospital Course: Detox Protocol Followed, Detoxed Safely, Responded well, Discharged Condition Good, Rehab Referral Accepted Patient has Accepted a Rehab Referral to: [facility] - Medication Discharge Medications: Ambulatory Orders Aspirin Coated [Ecotrin -] 81 mg PO DAILY 12/17/17 Fluoxetine HCl [Prozac] 40 mg PO DAILY 12/17/17 Folic Acid 1 mg PO DAILY 12/17/17 Lurasidone HCl [Latuda] 60 mg PO HS 12/17/17 Mirtazapine 7.5 mg PO HS 12/17/17 Acetaminophen 500 mg PO DAILY PRN 04/09/18 Gabapentin [Neurontin -] 400 mg PO Q8H 04/09/18 Lidocaine 5% Patch [Lidoderm -] 1 patch .ROUTE DAILY 04/09/18 Lisinopril [Zestril] 2.5 mg PO DAILY 04/09/18 Mag Hydrox/Al Hydrox/Simeth [MAALOX *SUSPENSION* -] 30 ml PO TID PRN 04/09/18 Multivitamin [Multiple Vitamins] 1 tablet PO DAILY 04/09/18 Pantoprazole Sodium [Protonix] 40 mg PO BID 04/09/18 Quetiapine Fumarate [Seroquel -] 400 mg PO HS 04/09/18 Selenium Sulfide [Selenium Sulfide 2.25% Shampoo] 1 applic TP BID 04/09/18 Tramadol HCl [Ultram] 50 mg PO Q6H PRN 04/09/18 Umeclidinium [place] [Incruse Ellipta] 1 puff PO DAILY 04/09/18 Atorvastatin Ca [Lipitor] 20 mg PO HS #14 tablet 04/12/18 Carvedilol [Coreg -] 3.125 mg PO DAILY #14 tablet 04/12/18 Clopidogrel Bisulfate [Plavix] 75 mg PO DAILY #14 tablet 04/12/18 Metformin HCl [Glucophage] 500 mg PO BID #30 tablet 04/12/18 Nitroglycerin [Nitrostat] 0.4 mg SL [id number] PRN #10 tab.subl 04/12/18 Tamsulosin HCl [Flomax] 0.4 mg PO HS #14 capsule 04/12/18 - Diagnosis (1) Alcohol dependence with uncomplicated withdrawal Current Visit: Yes Status: Acute (2) COPD (chronic obstructive pulmonary disease) Current Visit: Yes Status: Chronic Qualifiers: COPD type: unspecified COPD Qualified Code(s): J44.9 - Chronic obstructive pulmonary disease, unspecified (3) DM2 (diabetes mellitus, type 2) Current Visit: Yes Status: Chronic Qualifiers: Diabetes mellitus fci insulin use: without fci use Diabetes mellitus complication status: with unspecified complications Qualified Code(s) : E11.8 - Type 2 diabetes mellitus with unspecified complications (4) HLD (hyperlipidemia) Current Visit: Yes Status: Chronic Qualifiers: Hyperlipidemia type: unspecified Qualified Code(s): E78.5 - Hyperlipidemia , unspecified (5) HTN (hypertension) Current Visit: Yes Status: Chronic Qualifiers: Hypertension type: essential hypertension Qualified Code(s): I10 - Essential (primary) hypertension (6) Nicotine dependence Current Visit: Yes Status: Acute Qualifiers: Nicotine product type: cigarettes Substance use status: in withdrawal Qualified Code(s): F17.213 - Nicotine dependence, cigarettes, with withdrawal (7) Bipolar II disorder Current Visit: No Status: Suspected (8) Sedative, hypnotic or anxiolytic dependence, uncomplicated Current Visit: Yes Status: Acute - AMA Did Patient Leave Against Medical Advice: No
[2018-04-13] MEDS: CARVEDILOL 3.125 MG TABLET (FP) PO SCH (11:16)
[2018-04-13] MEDS: RANITIDINE HCL 150 MG TABLET (FP) PO SCH (11:16)
[2018-04-13] MEDS: ASPIRIN COATED 81 MG TABLET.EC PO SCH (11:17)
[2018-04-13] MEDS: FLUoxetine HCL 20 MG CAPSULE (FP) PO SCH (11:17)
[2018-04-13] MEDS: LISINOPRIL 5 MG TABLET (FP) PO SCH (11:17)
[2018-04-13] MEDS: PRENATAL VITAMINS W/ FOLIC ACID TABLET (FP) PO SCH (11:18)
[2018-04-13] MEDS: LIDOCAINE 5% TOPICAL PATCH TP SCH (11:19)
[2018-04-13] MEDS: NICOTINE 21 MG/24 HOURS TOPICAL PATCH TD SCH (11:19)
[2018-04-13] MEDS: SELENIUM SULFIDE 2.5% LOTION 4 OZ. TP SCH (11:19)
== END 2018-04-13 12:13 | disposition home or self-care (01) | DRG 897 ==
LOC: YASAS 08:23 → Y3N 10:46
PROC: HZ2ZZZZ Detoxification Services for Substance Abuse Treatment (ICD-10-PCS; principal; 2018-04-09)
DX: F10.230 Alcohol dependence with withdrawal, uncomplicated (principal); F31.81 Bipolar II disorder; F13.230 Sedative, hypnotic or anxiolytic dependence with withdrawal, uncomplicated; F17.213 Nicotine dependence, cigarettes, with withdrawal; F10.24 Alcohol dependence with alcohol-induced mood disorder; F10.282 Alcohol dependence with alcohol-induced sleep disorder; F41.9 Anxiety disorder, unspecified; F32.9 Major depressive disorder, single episode, unspecified; F20.9 Schizophrenia, unspecified; I10 Essential (primary) hypertension; E11.65 Type 2 diabetes mellitus with hyperglycemia; Z79.84 Long term (current) use of oral hypoglycemic drugs; E78.00 Pure hypercholesterolemia, unspecified; J44.9 Chronic obstructive pulmonary disease, unspecified; I25.10 Atherosclerotic heart disease of native coronary artery without angina pectoris; I25.2 Old myocardial infarction; Z95.810 Presence of automatic (implantable) cardiac defibrillator; Z85.118 Personal history of other malignant neoplasm of bronchus and lung; D50.9 Iron deficiency anemia, unspecified; G47.00 Insomnia, unspecified
CPT/HCPCS: 36415; 80053; 81003; 82962; 85027; 86593

== ENCOUNTER 2018-05-24 09:32 | Inpatient (IN) | payer OTHER ==
[2018-05-24 10:03] VITALS: BMI 25.9
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
[2018-05-24] MEDS ORDERED: LOPERAMIDE HCL 2 MG CAPSULE PO PRN (10:52)
[2018-05-24] MEDS ORDERED: IBUPROFEN 400 MG TABLET (FP) PO PRN (10:52)
[2018-05-24] MEDS ORDERED: MAGNESIUM CITRATE 300 ML BOTTLE PO PRN (10:52)
[2018-05-24] MEDS ORDERED: MAGNESIUM HYDROX 2400MG/30ML ORAL SUSPENSION 30 ML CUP PO PRN (10:52)
[2018-05-24] MEDS ORDERED: MAG HYDROX/AL HYDROX/SIMETH 30 ML UNIT-DOSE CUP PO PRN (10:52)
[2018-05-24] MEDS ORDERED: guaiFENesin/D-METHORPHAN HB 10 ML UNIT-DOSE CUPS PO PRN (10:52)
[2018-05-24] MEDS ORDERED: P-EPHED 60MG/TRIPROLIDI 2.5MG TABLET PO PRN (10:52)
[2018-05-24] MEDS ORDERED: MENTHOL/PHENOL 1 EACH UD MM PRN (10:52)
[2018-05-24] MEDS ORDERED: hydrOXYzine PAMOATE 50 MG CAPSULE (FP) PO PRN (10:52)
[2018-05-24] MEDS ORDERED: NITROGLYCERIN SUBLINGUAL 1/150 0.4 MG TAB SL PRN (10:54)
[2018-05-24] MEDS ORDERED: ALBUTEROL SO4 8 GM HFA INHALER IH PRN (10:54)
[2018-05-24] MEDS ORDERED: chlordiazePOXIDE HCL 25 MG CAPSULE PO PRN (10:57)
[2018-05-24] MEDS ORDERED: CLOPIDOGREL BISULFATE 75 MG TABLET (FP) PO SCH (11:00)
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
[2018-05-24] MEDS: INSULIN SLIDING SCALE (NOVOLOG) 1 VIAL SQ SCH ×2 (13:02→16:58)
[2018-05-24] MEDS: LISINOPRIL 5 MG TABLET (FP) PO SCH ×2 (13:39→13:46)
[2018-05-24] MEDS ORDERED: INSULIN (NOVOLOG) ASPART 100 UNITS/ML 10ML VIAL ONE (13:59)
[2018-05-24] MEDS: CARVEDILOL 3.125 MG TABLET (FP) PO SCH (14:29)
--- NOTE | 2018-05-24 15:52 | EKG ---
Test Reason : Blood Pressure : / mmHG Vent. Rate : 102 BPM Atrial Rate : 102 BPM P-R Int : 158 ms QRS Dur : 126 ms QT Int : 348 ms P-R-T Axes : 065 046 -47 degrees QTc Int : 453 ms SINUS TACHYCARDIA WITH OCCASIONAL PREMATURE VENTRICULAR COMPLEXES POSSIBLE LEFT ATRIAL ENLARGEMENT NON-SPECIFIC INTRA-VENTRICULAR CONDUCTION BLOCK INFERIOR INFARCT (CITED ON OR BEFORE 17-DEC-2017) ABNORMAL ECG WHEN COMPARED WITH ECG OF 17-DEC-2017 21:33, PREMATURE VENTRICULAR COMPLEXES ARE NOW PRESENT Confirmed by NNAMDI LOVELACE, JODIE ([id number]) on 05/24/2018 3:52:23 PM Referred By: Confirmed By:JODIE COTO MD
[2018-05-24] MEDS: metFORMIN HCL 500 MG TABLET (FP) PO SCH (17:30)
[2018-05-24] MEDS: chlordiazePOXIDE HCL 25 MG CAPSULE PO SCH ×2 (17:35→22:21)
[2018-05-24] MEDS ORDERED: MELATONIN 5 MG TABLETS PO PRN (22:00)
[2018-05-24] MEDS ORDERED: TAMSULOSIN HCL 0.4 MG CAP PO SCH (22:00)
[2018-05-24] MEDS: ATORVASTATIN CA 20 MG TABLET (FP) PO SCH (22:21)
[2018-05-24] MEDS: TAMSULOSIN HCL 0.4 MG CAP PO SCH (22:21)
[2018-05-24] MEDS: THIAMINE HCL 100 MG TABLET (FP) PO SCH (22:21)
[2018-05-25] MEDS: chlordiazePOXIDE HCL 25 MG CAPSULE PO SCH ×4 (05:40→22:12)
[2018-05-25] MEDS: CLOPIDOGREL BISULFATE 75 MG TABLET (FP) PO SCH (06:05)
[2018-05-25] MEDS: INSULIN SLIDING SCALE (NOVOLOG) 1 VIAL SQ SCH ×3 (06:05→17:25)
[2018-05-25] MEDS: metFORMIN HCL 500 MG TABLET (FP) PO SCH ×2 (06:05→17:25)
--- NOTE | 2018-05-25 07:38 | CONSULT ---
[facility] Psychiatric Consult - Data Date of interview: 05/25/18 Admission source: [facility]
[2018-05-25] MEDS ORDERED: PATIENT'S OWN MEDICATION (NON-FORMULARY) (Fluoxetine Hcl [Prozac] 40 MG) PO SCH (10:00)
[2018-05-25 10:14] LABS: HEMATOCRIT 28.1 % (35.4-49); HEMOGLOBIN 9.4 GM/dL (11.7-16.9); MCH 26.7 pg (25.7-33.7); MCHC 33.5 g/dl (32.0-35.9); MEAN CELL VOLUME 79.6 fl (80-96); MEAN PLT VOLUME 9.2 fl (7.5-11.1); PLATELET COUNT 296 K/MM3 (134-434); RBC 3.53 M/mm3 (4.00-5.60); RDW 26.7 % (11.9-15.9); WHITE BLOOD COUNT 5.6 K/mm3 (4.0-10.0)
[2018-05-25] MEDS: RANITIDINE HCL 150 MG TABLET (FP) PO SCH ×2 (10:23→22:09)
[2018-05-25] MEDS: LISINOPRIL 5 MG TABLET (FP) PO SCH (10:23)
[2018-05-25] MEDS: PRENATAL VITAMINS W/ FOLIC ACID TABLET (FP) PO SCH (10:23)
[2018-05-25] MEDS: ASPIRIN COATED 81 MG TABLET.EC PO SCH (10:23)
[2018-05-25] MEDS: CARVEDILOL 3.125 MG TABLET (FP) PO SCH (10:24)
[2018-05-25] MEDS: FLUoxetine HCL 20 MG CAPSULE (FP) PO SCH (10:24)
[2018-05-25] MEDS: QUEtiapine FUMARATE 200 MG TABLET PO SCH (10:24)
[2018-05-25] MEDS: ACETAMINOPHEN 325 MG TABLET (FP) PO PRN (10:28)
[2018-05-25 11:12] LABS: ALBUMIN 3.4 g/dl (3.4-5.0); ALK PHOS 129 U/L (45-117); ANION GAP 8 MMOL/L (8-16); BILIRUBIN,TOTAL 0.4 mg/dL (0.2-1); BLOOD UREA NITROGEN 19 mg/dL (7-18); CALCIUM 8.7 mg/dL (8.5-10.1); CHLORIDE 112 mmol/L (98-107); CO2 24 mmol/L (21-32); CREATININE 0.8 mg/dL (0.55-1.3); GLUCOSE,RANDOM 170 mg/dL (74-106); SGOT/AST 17 U/L (15-37); SGPT/ALT 26 U/L (13-61); SODIUM 144 mmol/L (136-145); TOT PROT 6.5 g/dl (6.4-8.2)
--- NOTE | 2018-05-25 11:20 | PN ---
S CIWA - CIWA Score Nausea/Vomitin-No Nausea/No Vomiting Muscle Tremors: 4-Moderate,w/Arms Extend Anxiety: 3 Agitation: 3 Paroxysmal Sweats: 3 Orientation: 0-Oriented Tacttile Disturbances: 0-None Auditory Disturbances: 0-None Visual Disturbances: 0-None Headache: 0-None Present CIWA-Ar Total Score: 13 [facility] Progress Note (SOAP) Subjective: agitation anxiety sweats shakes interrupted sleep I am having some chest pain discomfort Objective: 05/25/18 11:18 Vital Signs Temperature 98.1 F 05/25/18 09:30 Pulse Rate 87 05/25/18 09:30 Respiratory Rate 18 05/25/18 09:30 Blood Pressure 118/70 05/25/18 09:30 O2 Sat by Pulse Oximetry (%) Laboratory Tests 05/25/18 05/25/18 05:50 05:50 WBC 5.6 RBC 3.53 L Hgb 9.4 L Hct 28.1 L MCV 79.6 L MCH 26.7 D MCHC 33.5 RDW 26.7 H Plt Count 296 D MPV 9.2 Sodium 144 Potassium 4.0 Chloride 112 H Carbon Dioxide 24 Anion Gap 8 BUN 19 H Creatinine 0.8 Creat Clearance w eGFR > 60 Random Glucose 170 H Calcium 8.7 Total Bilirubin 0.4 AST 17 ALT 26 Alkaline Phosphatase 129 H Total Protein 6.5 Albumin 3.4 aaox3 ambulating no acute distress ekg ordered for comparison no s/s of diaphoresis, BP WNL, HR assessed normal s1,s2 noted Assessment: 05/25/18 11:52 withdrawals sx EKG done. second ekg results better than earlier Plan: continue detox increase fluids nitro tab prn encouraged pt to ask rn when necessary will continue to monitor
--- NOTE | 2018-05-25 14:39 | EKG ---
Test Reason : Blood Pressure : / mmHG Vent. Rate : 094 BPM Atrial Rate : 094 BPM P-R Int : 140 ms QRS Dur : 120 ms QT Int : 366 ms P-R-T Axes : 061 038 -41 degrees QTc Int : 457 ms SINUS RHYTHM WITH OCCASIONAL PREMATURE VENTRICULAR COMPLEXES INFERIOR INFARCT (CITED ON OR BEFORE 17-DEC-2017) ABNORMAL ECG WHEN COMPARED WITH ECG OF 24-MAY-2018 12:03, NO SIGNIFICANT CHANGE WAS FOUND Confirmed by JEFFRY LOVELACE, CRISTINA ([id number]) on 05/25/2018 2:38:53 PM Referred By: Confirmed By:CRISTINA TERAN MD
[2018-05-25] MEDS ORDERED: PATIENT'S OWN MEDICATION (NON-FORMULARY) (Mirtazapine [Mirtazapine] 7.5 MG) PO SCH (22:00)
[2018-05-25] MEDS: ATORVASTATIN CA 20 MG TABLET (FP) PO SCH (22:08)
[2018-05-25] MEDS: THIAMINE HCL 100 MG TABLET (FP) PO SCH (22:08)
[2018-05-25] MEDS: TAMSULOSIN HCL 0.4 MG CAP PO SCH (22:09)
[2018-05-25] MEDS: QUEtiapine FUMARATE 400 MG TABLET PO SCH (22:09)
[2018-05-25] MEDS: MIRTAZAPINE 15 MG TABLET (FP) PO SCH (22:12)
[2018-05-26] MEDS: INSULIN SLIDING SCALE (NOVOLOG) 1 VIAL SQ SCH ×3 (06:24→16:40)
[2018-05-26] MEDS: metFORMIN HCL 500 MG TABLET (FP) PO SCH ×2 (06:25→16:53)
[2018-05-26] MEDS: chlordiazePOXIDE HCL 25 MG CAPSULE PO SCH ×2 (06:25→10:49)
[2018-05-26] MEDS: CLOPIDOGREL BISULFATE 75 MG TABLET (FP) PO SCH (07:36)
[2018-05-26] MEDS: ASPIRIN COATED 81 MG TABLET.EC PO SCH (10:49)
[2018-05-26] MEDS: FLUoxetine HCL 20 MG CAPSULE (FP) PO SCH (10:49)
[2018-05-26] MEDS: LISINOPRIL 5 MG TABLET (FP) PO SCH (10:49)
[2018-05-26] MEDS: RANITIDINE HCL 150 MG TABLET (FP) PO SCH ×2 (10:50→22:09)
[2018-05-26] MEDS: CARVEDILOL 3.125 MG TABLET (FP) PO SCH (10:50)
[2018-05-26] MEDS: PRENATAL VITAMINS W/ FOLIC ACID TABLET (FP) PO SCH (10:50)
[2018-05-26] MEDS: QUEtiapine FUMARATE 200 MG TABLET PO SCH (10:53)
--- NOTE | 2018-05-26 11:23 | PN ---
S CIWA - CIWA Score Nausea/Vomitin-No Nausea/No Vomiting Muscle Tremors: 3 Anxiety: 2 Agitation: 2 Paroxysmal Sweats: 3 Orientation: 0-Oriented Tacttile Disturbances: 0-None Auditory Disturbances: 0-None Visual Disturbances: 0-None Headache: 0-None Present CIWA-Ar Total Score: 10 S Progress Note (SOAP) Subjective: feeling better little sweats Objective: 05/26/18 11:23 Vital Signs Temperature 96.6 F L 05/26/18 09:52 Pulse Rate 87 05/26/18 09:52 Respiratory Rate 18 05/26/18 09:52 Blood Pressure 126/70 05/26/18 09:52 O2 Sat by Pulse Oximetry (%) Laboratory Tests 05/25/18 05/25/18 05:50 05:50 WBC 5.6 RBC 3.53 L Hgb 9.4 L Hct 28.1 L MCV 79.6 L MCH 26.7 D MCHC 33.5 RDW 26.7 H Plt Count 296 D MPV 9.2 Sodium 144 Potassium 4.0 Chloride 112 H Carbon Dioxide 24 Anion Gap 8 BUN 19 H Creatinine 0.8 Creat Clearance w eGFR > 60 Random Glucose 170 H Calcium 8.7 Total Bilirubin 0.4 AST 17 ALT 26 Alkaline Phosphatase 129 H Total Protein 6.5 Albumin 3.4 aaox3 ambulating no acute distress Assessment: 05/26/18 11:25 withdrawal sx pt denies of any chest pain/discomfort Plan: increase fluids continue detox
[2018-05-26] MEDS: chlordiazePOXIDE 5 MG CAPSULE PO SCH ×2 (18:12→22:10)
[2018-05-26] MEDS: ACETAMINOPHEN 325 MG TABLET (FP) PO PRN (19:10)
[2018-05-26] MEDS: THIAMINE HCL 100 MG TABLET (FP) PO SCH (22:08)
[2018-05-26] MEDS: TAMSULOSIN HCL 0.4 MG CAP PO SCH (22:09)
[2018-05-26] MEDS: ATORVASTATIN CA 20 MG TABLET (FP) PO SCH (22:09)
[2018-05-26] MEDS: MIRTAZAPINE 15 MG TABLET (FP) PO SCH (22:09)
[2018-05-26] MEDS: QUEtiapine FUMARATE 400 MG TABLET PO SCH (22:09)
[2018-05-27] MEDS: ACETAMINOPHEN 325 MG TABLET (FP) PO PRN ×2 (05:32→19:24)
[2018-05-27] MEDS: chlordiazePOXIDE 5 MG CAPSULE PO SCH ×2 (05:33→10:15)
[2018-05-27] MEDS: metFORMIN HCL 500 MG TABLET (FP) PO SCH ×2 (06:31→17:30)
[2018-05-27] MEDS: CLOPIDOGREL BISULFATE 75 MG TABLET (FP) PO SCH (06:31)
[2018-05-27] MEDS: INSULIN SLIDING SCALE (NOVOLOG) 1 VIAL SQ SCH ×3 (06:31→17:08)
[2018-05-27] MEDS: ASPIRIN COATED 81 MG TABLET.EC PO SCH (10:15)
[2018-05-27] MEDS: PRENATAL VITAMINS W/ FOLIC ACID TABLET (FP) PO SCH (10:15)
[2018-05-27] MEDS: QUEtiapine FUMARATE 200 MG TABLET PO SCH (10:15)
[2018-05-27] MEDS: FLUoxetine HCL 20 MG CAPSULE (FP) PO SCH (10:16)
[2018-05-27] MEDS: RANITIDINE HCL 150 MG TABLET (FP) PO SCH ×2 (10:16→22:13)
[2018-05-27] MEDS: LISINOPRIL 5 MG TABLET (FP) PO SCH (10:16)
[2018-05-27] MEDS: CARVEDILOL 3.125 MG TABLET (FP) PO SCH (10:17)
--- NOTE | 2018-05-27 10:22 | PN ---
[facility] Progress Note (SOAP) Subjective: Mild restlessness and interrupted sleep Objective: 05/27/18 10:21 Vital Signs 05/27/18 05/27/18 05/27/18 03:30 08:14 09:41 Temperature 97.3 F L 98.8 F Pulse Rate 84 97 H Respiratory 19 18 18 Rate Blood Pressure 128/77 119/73 Laboratory Last Values WBC 5.6 K/mm3 (4.0-10.0) 05/25/18 05:50 RBC 3.53 M/mm3 (4.00-5.60) L 05/25/18 05:50 Hgb 9.4 GM/dL (11.7-16.9) L 05/25/18 05:50 Hct 28.1 % (35.4-49) L 05/25/18 05:50 MCV 79.6 fl (80-96) L 05/25/18 05:50 MCH 26.7 pg (25.7-33.7) D 05/25/18 05:50 MCHC 33.5 g/dl (32.0-35.9) 05/25/18 05:50 RDW 26.7 % (11.9-15.9) H 05/25/18 05:50 Plt Count 296 K/MM3 (134-434) D 05/25/18 05:50 MPV 9.2 fl (7.5-11.1) 05/25/18 05:50 Sodium 144 mmol/L (136-145) 05/25/18 05:50 Potassium 4.0 mmol/L (3.5-5.1) 05/25/18 05:50 Chloride 112 mmol/L (98-107) H 05/25/18 05:50 Carbon Dioxide 24 mmol/L (21-32) 05/25/18 05:50 Anion Gap 8 MMOL/L (8-16) 05/25/18 05:50 BUN 19 mg/dL (7-18) H 05/25/18 05:50 Creatinine 0.8 mg/dL (0.55-1.3) 05/25/18 05:50 Creat Clearance w eGFR > 60 (>60) 05/25/18 05:50 POC Glucometer 127 UNITS (80-120) 05/27/18 05:34 Random Glucose 170 mg/dL (74-106) H 05/25/18 05:50 Calcium 8.7 mg/dL (8.5-10.1) 05/25/18 05:50 Total Bilirubin 0.4 mg/dL (0.2-1) 05/25/18 05:50 AST 17 U/L (15-37) 05/25/18 05:50 ALT 26 U/L (13-61) 05/25/18 05:50 Alkaline Phosphatase 129 U/L (45-117) H 05/25/18 05:50 Total Protein 6.5 g/dl (6.4-8.2) 05/25/18 05:50 Albumin 3.4 g/dl (3.4-5.0) 05/25/18 05:50 RPR Titer Nonreactive (NONREACTIVE) 05/25/18 05:50 Labs noted Assessment: 05/27/18 10:22 Withdrawal sx Plan: Continue detox
[2018-05-27] MEDS: chlordiazePOXIDE HCL 10 MG CAPSULE PO SCH ×2 (17:39→22:15)
[2018-05-27] MEDS: QUEtiapine FUMARATE 400 MG TABLET PO SCH (22:13)
[2018-05-27] MEDS: THIAMINE HCL 100 MG TABLET (FP) PO SCH (22:13)
[2018-05-27] MEDS: ATORVASTATIN CA 20 MG TABLET (FP) PO SCH (22:13)
[2018-05-27] MEDS: TAMSULOSIN HCL 0.4 MG CAP PO SCH (22:13)
[2018-05-27] MEDS: MIRTAZAPINE 15 MG TABLET (FP) PO SCH (22:22)
[2018-05-28] MEDS: chlordiazePOXIDE HCL 10 MG CAPSULE PO SCH ×2 (06:36→10:44)
[2018-05-28] MEDS: CLOPIDOGREL BISULFATE 75 MG TABLET (FP) PO SCH (06:36)
[2018-05-28] MEDS: metFORMIN HCL 500 MG TABLET (FP) PO SCH ×2 (06:36→17:29)
[2018-05-28] MEDS: ACETAMINOPHEN 325 MG TABLET (FP) PO PRN (06:37)
[2018-05-28] MEDS: INSULIN SLIDING SCALE (NOVOLOG) 1 VIAL SQ SCH ×3 (06:59→17:18)
--- NOTE | 2018-05-28 09:29 | DS ---
[facility] Detox Discharge Summary Admission Date: 05/24/18 Discharge Date: 05/28/18 - History Present History: Alcohol Dependence - Physical Exam Results Vital Signs: Vital Signs Temperature 98.6 F 05/28/18 09:16 Pulse Rate 106 H 05/28/18 09:16 Respiratory Rate 18 05/28/18 09:16 Blood Pressure 126/80 05/28/18 09:16 O2 Sat by Pulse Oximetry (%) - Treatment Hospital Course: Detox Protocol Followed, Detoxed Safely, Responded well, Discharged Condition Good, Rehab Referral Accepted - Medication Discharge Medications: Ambulatory Orders Aspirin Coated [Ecotrin -] 81 mg PO DAILY 12/17/17 Fluoxetine HCl [Prozac] 40 mg PO DAILY 12/17/17 Folic Acid 1 mg PO DAILY 12/17/17 Mirtazapine 7.5 mg PO HS 12/17/17 Multivitamin [Multiple Vitamins] 1 tablet PO DAILY 04/09/18 Pantoprazole Sodium [Protonix] 40 mg PO BID 04/09/18 Quetiapine Fumarate [Seroquel -] 400 mg PO HS 04/09/18 Selenium Sulfide [Selenium Sulfide 2.25% Shampoo] 1 applic TP BID 04/09/18 Tramadol HCl [Ultram] 50 mg PO Q6H PRN 04/09/[address] Umeclidinium [place] [Incruse Ellipta] 1 puff PO DAILY 04/09/18 Quetiapine Fumarate [Seroquel -] 200 mg PO DAILY 05/24/18 Thiamine HCl [Vitamin B-1] 100 mg PO DAILY 05/24/18 Albuterol Sulfate Inhaler - [Ventolin HFA Inhaler -] 2 inh PO Q6H PRN #1 inhaler 05/28/18 Atorvastatin Ca [Lipitor] 20 mg PO HS #14 tablet 05/28/18 Carvedilol [Coreg -] 3.125 mg PO DAILY #14 tablet 05/28/18 Clopidogrel Bisulfate [Plavix] 75 mg PO DAILY #14 tablet 05/28/18 Lisinopril [Zestril] 2.5 mg PO DAILY #14 tablet 05/28/18 Metformin HCl [Glucophage] 500 mg PO BID #30 tablet 05/28/18 Nitroglycerin [Nitrostat] 0.4 mg SL [id number] PRN #10 tab.subl 01/20/19 Tamsulosin HCl [Flomax] 2 cap PO HS #30 capsule 05/28/18 - AMA Did Patient Leave Against Medical Advice: No
--- NOTE | 2018-05-28 10:02 | PN ---
S Progress Note (SOAP) Subjective: feeling better mild tremor less sweat patient completed alcohol detox regimen tolerated well received counselor reported that [facility] no bed available today and the case had been discussed with Ms. Batres [phone] who ok to stay in detox. Objective: 05/28/18 10:06 Vital Signs Temperature 98.6 F 05/28/18 09:16 Pulse Rate 106 H 05/28/18 09:16 Respiratory Rate 18 05/28/18 09:16 Blood Pressure 126/80 05/28/18 09:16 O2 Sat by Pulse Oximetry (%) Laboratory Last Values WBC 5.6 K/mm3 (4.0-10.0) 05/25/18 05:50 RBC 3.53 M/mm3 (4.00-5.60) L 05/25/18 05:50 Hgb 9.4 GM/dL (11.7-16.9) L 05/25/18 05:50 Hct 28.1 % (35.4-49) L 05/25/18 05:50 MCV 79.6 fl (80-96) L 05/25/18 05:50 MCH 26.7 pg (25.7-33.7) D 05/25/18 05:50 MCHC 33.5 g/dl (32.0-35.9) 05/25/18 05:50 RDW 26.7 % (11.9-15.9) H 05/25/18 05:50 Plt Count 296 K/MM3 (134-434) D 05/25/18 05:50 MPV 9.2 fl (7.5-11.1) 05/25/18 05:50 Sodium 144 mmol/L (136-145) 05/25/18 05:50 Potassium 4.0 mmol/L (3.5-5.1) 05/25/18 05:50 Chloride 112 mmol/L (98-107) H 05/25/18 05:50 Carbon Dioxide 24 mmol/L (21-32) 05/25/18 05:50 Anion Gap 8 MMOL/L (8-16) 05/25/18 05:50 BUN 19 mg/dL (7-18) H 05/25/18 05:50 Creatinine 0.8 mg/dL (0.55-1.3) 05/25/18 05:50 Creat Clearance w eGFR > 60 (>60) 05/25/18 05:50 POC Glucometer 121 UNITS (80-120) 05/28/18 06:34 Random Glucose 170 mg/dL (74-106) H 05/25/18 05:50 Calcium 8.7 mg/dL (8.5-10.1) 05/25/18 05:50 Total Bilirubin 0.4 mg/dL (0.2-1) 05/25/18 05:50 AST 17 U/L (15-37) 05/25/18 05:50 ALT 26 U/L (13-61) 05/25/18 05:50 Alkaline Phosphatase 129 U/L (45-117) H 05/25/18 05:50 Total Protein 6.5 g/dl (6.4-8.2) 05/25/18 05:50 Albumin 3.4 g/dl (3.4-5.0) 05/25/18 05:50 RPR Titer Nonreactive (NONREACTIVE) 05/25/18 05:50 lab noted Assessment: 05/28/18 10:08 mild withdrawal sx anemia Plan: continue detox ferrous iron supplement
[2018-05-28] MEDS ORDERED: FERROUS SO4 325 MG TABLET (FP) PO SCH (10:15)
[2018-05-28] MEDS: PRENATAL VITAMINS W/ FOLIC ACID TABLET (FP) PO SCH (10:43)
[2018-05-28] MEDS: CARVEDILOL 3.125 MG TABLET (FP) PO SCH (10:44)
[2018-05-28] MEDS: FLUoxetine HCL 20 MG CAPSULE (FP) PO SCH (10:44)
[2018-05-28] MEDS: ASPIRIN COATED 81 MG TABLET.EC PO SCH (10:44)
[2018-05-28] MEDS: RANITIDINE HCL 150 MG TABLET (FP) PO SCH ×2 (10:44→22:30)
[2018-05-28] MEDS: QUEtiapine FUMARATE 200 MG TABLET PO SCH (10:44)
[2018-05-28] MEDS: LISINOPRIL 5 MG TABLET (FP) PO SCH (10:45)
[2018-05-28] MEDS: TAMSULOSIN HCL 0.4 MG CAP PO SCH (22:29)
[2018-05-28] MEDS: THIAMINE HCL 100 MG TABLET (FP) PO SCH (22:29)
[2018-05-28] MEDS: MIRTAZAPINE 15 MG TABLET (FP) PO SCH (22:30)
[2018-05-28] MEDS: QUEtiapine FUMARATE 400 MG TABLET PO SCH (22:30)
[2018-05-28] MEDS: ATORVASTATIN CA 20 MG TABLET (FP) PO SCH (22:30)
[2018-05-29] MEDS: CLOPIDOGREL BISULFATE 75 MG TABLET (FP) PO SCH (06:56)
[2018-05-29] MEDS: metFORMIN HCL 500 MG TABLET (FP) PO SCH (06:56)
[2018-05-29] MEDS: INSULIN SLIDING SCALE (NOVOLOG) 1 VIAL SQ SCH (06:58)
[2018-05-29 07:52] VITALS: BP 121/71; PULSE 82; TEMP 97.2
--- NOTE | 2018-05-29 17:03 | DS ---
[facility] Detox Discharge Summary Admission Date: 05/24/18 Discharge Date: 05/29/18 - History Present History: Alcohol Dependence, Sedative Dependence Additional Comments: PATIENT GOING HOME AT THIS TIME AND NOTES THAT HE WILL ATTEND LOCAL OUTPATIENT AA SUPPORT GROUP MEETING. PATIENT WAS DISCHARGED FROM DETOX UNIT IN STABLE MEDICAL CONDITION. Pertinent Past History: HTN, Hyperlipidemia, History of LA, CAD, History of Automatic Cardioverter / Defibrillator Placement, History of Lung Cancer, C.O.P.D., History of Bipolar II Disorder, History of Anemia, History of Depression, History of Acid Reflux, Type II DM, Nicotine Dependence. - Physical Exam Results Vital Signs: Vital Signs Temperature 97.2 F L 05/29/18 07:51 Pulse Rate 82 05/29/18 07:51 Respiratory Rate 20 05/29/18 07:51 Blood Pressure 121/71 05/29/18 07:51 O2 Sat by Pulse Oximetry (%) Pertinent Admission Physical Exam Findings: WITHDRAWAL SYMPTOMS. Laboratory Tests 05/24/18 05/24/18 05/25/18 10:31 16:48 05:40 WBC RBC Hgb Hct MCV MCH MCHC RDW Plt Count MPV Sodium Potassium Chloride Carbon Dioxide Anion Gap BUN Creatinine Creat Clearance w eGFR POC Glucometer 224 170 147 Random Glucose Calcium Total Bilirubin AST ALT Alkaline Phosphatase Total Protein Albumin RPR Titer 05/25/18 05/25/18 05/25/18 05:50 05:50 05:50 WBC 5.6 RBC 3.53 L Hgb 9.4 L Hct 28.1 L MCV 79.6 L MCH 26.7 D MCHC 33.5 RDW 26.7 H Plt Count 296 D MPV 9.2 Sodium 144 Potassium 4.0 Chloride 112 H Carbon Dioxide 24 Anion Gap 8 BUN 19 H Creatinine 0.8 Creat Clearance w eGFR > 60 POC Glucometer Random Glucose 170 H Calcium 8.7 Total Bilirubin 0.4 AST 17 ALT 26 Alkaline Phosphatase 129 H Total Protein 6.5 Albumin 3.4 RPR Titer Nonreactive 05/25/18 05/25/18 05/26/18 11:48 16:29 06:23 WBC RBC Hgb Hct MCV MCH MCHC RDW Plt Count MPV Sodium Potassium Chloride Carbon Dioxide Anion Gap BUN Creatinine Creat Clearance w eGFR POC Glucometer 130 122 134 Random Glucose Calcium Total Bilirubin AST ALT Alkaline Phosphatase Total Protein Albumin RPR Titer 05/26/18 05/27/1819 16:25 05:34 11:43 WBC RBC Hgb Hct MCV MCH MCHC RDW Plt Count MPV Sodium Potassium Chloride Carbon Dioxide Anion Gap BUN Creatinine Creat Clearance w eGFR POC Glucometer 172 127 119 Random Glucose Calcium Total Bilirubin AST ALT Alkaline Phosphatase Total Protein Albumin RPR Titer 05/27/18 05/28/18 05/28/18 16:43 06:34 11:30 WBC RBC Hgb Hct MCV MCH MCHC RDW Plt Count MPV Sodium Potassium Chloride Carbon Dioxide Anion Gap BUN Creatinine Creat Clearance w eGFR POC Glucometer 182 121 123 Random Glucose Calcium Total Bilirubin AST ALT Alkaline Phosphatase Total Protein Albumin RPR Titer 05/28/18 05/29/18 16:48 06:54 WBC RBC Hgb Hct MCV MCH MCHC RDW Plt Count MPV Sodium Potassium Chloride Carbon Dioxide Anion Gap BUN Creatinine Creat Clearance w eGFR POC Glucometer 139 131 Random Glucose Calcium Total Bilirubin AST ALT Alkaline Phosphatase Total Protein Albumin RPR Titer LABS NOTED. - Treatment Hospital Course: Detox Protocol Followed, Detoxed Safely, Responded well, Discharged Condition Good Patient has Accepted a Rehab Referral to: PATIENT WILL ATTEND LOCAL 12-STEP / AA OUTPATIENT SUPPORT GROUP MEETING. - Medication Discharge Medications: Ambulatory Orders Fluoxetine HCl [Prozac] 40 mg PO DAILY 12/17/17 Folic Acid 1 mg PO DAILY 12/17/17 Mirtazapine 7.5 mg PO HS 12/17/17 Multivitamin [Multiple Vitamins] 1 tablet PO DAILY 04/09/18 Pantoprazole Sodium [Protonix] 40 mg PO BID 04/09/18 Quetiapine Fumarate [Seroquel -] 400 mg PO HS 04/09/18 Selenium Sulfide [Selenium Sulfide 2.25% Shampoo] 1 applic TP BID 04/09/18 Tramadol HCl [Ultram] 50 mg PO Q6H PRN 04/09/18 Umeclidinium [place] [Incruse Ellipta] 1 puff PO DAILY 04/09/18 Quetiapine Fumarate [Seroquel -] 200 mg PO DAILY 05/24/18 Thiamine HCl [Vitamin B-1] 100 mg PO DAILY 05/24/18 Albuterol Sulfate Inhaler - [Ventolin HFA Inhaler -] 2 inh PO Q6H PRN #1 inhaler 05/28/18 Atorvastatin Ca [Lipitor] 20 mg PO HS #14 tablet 05/28/18 Carvedilol [Coreg -] 3.125 mg PO DAILY #14 tablet 05/28/18 Clopidogrel Bisulfate [Plavix] 75 mg PO DAILY #14 tablet 05/28/18 Lisinopril [Zestril] 2.5 mg PO DAILY #14 tablet 05/28/18 Metformin HCl [Glucophage] 500 mg PO BID #30 tablet 05/28/18 Nitroglycerin [Nitrostat] 0.4 mg SL [id number] PRN #10 tab.subl 05/28/18 Tamsulosin HCl [Flomax] 2 cap PO HS #30 capsule 05/28/18 Aspirin Coated [Ecotrin -] 81 mg PO DAILY 14 Days #14 tablet.ec 05/29/18 - Diagnosis (1) AICD (automatic cardioverter/defibrillator) present Status: Chronic (2) Alcohol dependence with uncomplicated withdrawal Status: Acute (3) Alcohol-induced mood disorder Status: Acute (4) Anemia Status: Chronic Qualifiers: Anemia type: iron deficiency Iron deficiency anemia type: unspecified iron deficiency Qualified Code(s): D50.9 - Iron deficiency anemia, unspecified (5) Bipolar II disorder Status: Chronic (6) COPD (chronic obstructive pulmonary disease) Status: Chronic Qualifiers: COPD type: chronic bronchitis (7) DM2 (diabetes mellitus, type 2) Status: Chronic Qualifiers: Diabetes mellitus care home insulin use: with care home use Diabetes mellitus complication status: with unspecified complications Qualified Code(s) : E11.8 - Type 2 diabetes mellitus with unspecified complications; Z79.4 - rn long term care (current) use of insulin (8) Depression Status: Chronic Qualifiers: Depression Type: unspecified Qualified Code(s): F32.9 - Major depressive disorder, single episode, unspecified (9) HLD (hyperlipidemia) Status: Chronic Qualifiers: Hyperlipidemia type: pure hypercholesterolemia Qualified Code(s): E78.00 - Pure hypercholesterolemia, unspecified; E78.0 - Pure hypercholesterolemia (10) HTN (hypertension) Status: Chronic Qualifiers: Hypertension type: essential hypertension Qualified Code(s): I10 - Essential (primary) hypertension (11) Lung cancer Status: Chronic Qualifiers: Laterality: unspecified laterality Lung location: unspecified part of lung Qualified Code(s): C34.90 - Malignant neoplasm of unspecified part of unspecified bronchus or lung (12) Nicotine dependence Status: Chronic Qualifiers: Nicotine product type: cigarettes Substance use status: in withdrawal Qualified Code(s): F17.213 - Nicotine dependence, cigarettes, with withdrawal (13) Alcohol-induced sleep disorder Status: Suspected (14) History of myocardial infarction Status: Resolved (15) Sedative, hypnotic or anxiolytic dependence, uncomplicated Status: Acute - AMA Did Patient Leave Against Medical Advice: No
== END 2018-05-29 10:02 | disposition home or self-care (01) | DRG 897 ==
LOC: YASAS 09:32 → Y6N 11:22
PROVIDERS: ADMIT Neuromusculoskeletal Medicine & OMM; ATTEND Neuromusculoskeletal Medicine & OMM
PROC: HZ2ZZZZ Detoxification Services for Substance Abuse Treatment (ICD-10-PCS; principal; 2018-05-24)
DX: F10.230 Alcohol dependence with withdrawal, uncomplicated (principal); F31.81 Bipolar II disorder; C34.90 Malignant neoplasm of unspecified part of unspecified bronchus or lung; F10.280 Alcohol dependence with alcohol-induced anxiety disorder; F10.282 Alcohol dependence with alcohol-induced sleep disorder; F13.230 Sedative, hypnotic or anxiolytic dependence with withdrawal, uncomplicated; F17.213 Nicotine dependence, cigarettes, with withdrawal; I10 Essential (primary) hypertension; I25.2 Old myocardial infarction; I25.10 Atherosclerotic heart disease of native coronary artery without angina pectoris; D50.9 Iron deficiency anemia, unspecified; J44.9 Chronic obstructive pulmonary disease, unspecified; E11.9 Type 2 diabetes mellitus without complications; E78.5 Hyperlipidemia, unspecified; N40.0 Benign prostatic hyperplasia without lower urinary tract symptoms; K21.9 Gastro-esophageal reflux disease without esophagitis; Z95.810 Presence of automatic (implantable) cardiac defibrillator
CPT/HCPCS: 36415; 80053; 82962; 85027; 86593; 93005; 93010

== ENCOUNTER 2018-08-30 11:57 | Inpatient (IN) | payer OTHER ==
[2018-08-30 12:48] VITALS: BMI 24.4
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
[2018-08-30] MEDS ORDERED: MAGNESIUM HYDROX 2400MG/30ML ORAL SUSPENSION 30 ML CUP PO PRN (13:51)
[2018-08-30] MEDS ORDERED: MAGNESIUM CITRATE 300 ML BOTTLE PO PRN (13:51)
[2018-08-30] MEDS ORDERED: chlordiazePOXIDE HCL 25 MG CAPSULE PO PRN (13:51)
[2018-08-30] MEDS ORDERED: ACETAMINOPHEN 325 MG TABLET (FP) PO PRN ×2 (13:51)
[2018-08-30] MEDS ORDERED: hydrOXYzine PAMOATE 25 MG CAPSULE (FP) PO PRN (13:51)
[2018-08-30] MEDS ORDERED: NICOTINE POLACRILEX 2 MG GUM BUC PRN (13:51)
[2018-08-30] MEDS ORDERED: METHOCARBAMOL 500 MG TABLET PO PRN (13:51)
[2018-08-30] MEDS ORDERED: MENTHOL/PHENOL 1 EACH UD MM PRN (13:51)
[2018-08-30] MEDS ORDERED: IBUPROFEN 400 MG TABLET (FP) PO PRN (13:51)
[2018-08-30] MEDS ORDERED: MELATONIN 5 MG TABLETS PO PRN (13:51)
[2018-08-30] MEDS ORDERED: MAG HYDROX/AL HYDROX/SIMETH 30 ML UNIT-DOSE CUP PO PRN (13:51)
[2018-08-30] MEDS ORDERED: BISMUTH SUBSALICYLATE 262 MG/15 ML BTL PO PRN (13:51)
[2018-08-30] MEDS ORDERED: ALBUTEROL SO4 8 GM HFA INHALER IH PRN (13:55)
[2018-08-30] MEDS ORDERED: NITROGLYCERIN SUBLINGUAL 1/150 0.4 MG TAB SL PRN (13:55)
[2018-08-30] MEDS: metFORMIN HCL 500 MG TABLET (FP) PO SCH (17:25)
[2018-08-30] MEDS: chlordiazePOXIDE HCL 25 MG CAPSULE PO SCH ×2 (17:58→22:32)
[2018-08-30] MEDS ORDERED: TAMSULOSIN HCL 0.4 MG CAP PO SCH (22:00)
[2018-08-30] MEDS: THIAMINE HCL 100 MG TABLET (FP) PO SCH (22:32)
[2018-08-30] MEDS: ATORVASTATIN CA 20 MG TABLET (FP) PO SCH (22:32)
[2018-08-30] MEDS: TAMSULOSIN HCL 0.4 MG CAP PO SCH (22:32)
[2018-08-30 22:55] LABS: HEMATOCRIT 40.7 % (35.4-49); HEMOGLOBIN 13.2 GM/dL (11.7-16.9); MCH 25.6 pg (25.7-33.7); MCHC 32.4 g/dl (32.0-35.9); MEAN CELL VOLUME 78.8 fl (80-96); MEAN PLT VOLUME 8.7 fl (7.5-11.1); PLATELET COUNT 230 K/MM3 (134-434); RBC 5.17 M/mm3 (4.00-5.60); RDW 18.5 % (11.9-15.9); WHITE BLOOD COUNT 10.3 K/mm3 (4.0-10.0)
[2018-08-30 23:11] LABS: ALBUMIN 4.1 g/dl (3.4-5.0); ALK PHOS 109 U/L (45-117); ANION GAP 7 MMOL/L (8-16); BILIRUBIN,TOTAL 0.7 mg/dL (0.2-1); BLOOD UREA NITROGEN 15 mg/dL (7-18); CALCIUM 9.4 mg/dL (8.5-10.1); CHLORIDE 99 mmol/L (98-107); CO2 26 mmol/L (21-32); CREATININE 0.7 mg/dL (0.55-1.3); GLUCOSE,RANDOM 110 mg/dL (74-106); POTASSIUM 4.6 mmol/L (3.5-5.1); SGOT/AST 35 U/L (15-37); SGPT/ALT 43 U/L (13-61); SODIUM 133 mmol/L (136-145); TOT PROT 7.5 g/dl (6.4-8.2)
[2018-08-30 23:25] LABS: EPI CELLS 2.4 /HPF (0-5/HPF); PH,URINE 5.5 (5.0-8.0); URINE APPEARANCE CLEAR; URINE BILIRUBIN NEGATIVE (NEGATIVE); URINE CASTS 16 /lpf (0-8); URINE COLOR DK YELLOW; URINE GLUCOSE (UA) NEGATIVE (NEGATIVE); URINE KETONE 1+ (NEGATIVE); URINE LEUK ESTERASE NEGATIVE (NEGATIVE); URINE NITRITE NEGATIVE (NEGATIVE); URINE PROTEIN 2+ (NEGATIVE); URINE RBC 5 /hpf (0-4); URINE UROBILINOGEN 0.2 mg/dL (0.2-1.0); URINE WBC 1 /hpf (0-5)
[2018-08-30 23:51] LABS: URINE CRYSTALS CALCIUM OXALATE 3+ /hpf
[2018-08-31] MEDS: chlordiazePOXIDE HCL 25 MG CAPSULE PO SCH ×5 (06:10→23:50)
[2018-08-31] MEDS: metFORMIN HCL 500 MG TABLET (FP) PO SCH ×2 (07:23→17:08)
[2018-08-31] MEDS: PRENATAL VITAMINS W/ FOLIC ACID TABLET (FP) PO SCH (10:40)
[2018-08-31] MEDS: ASPIRIN COATED 81 MG TABLET.EC PO SCH (10:40)
[2018-08-31] MEDS: LISINOPRIL 5 MG TABLET (FP) PO SCH (10:40)
[2018-08-31] MEDS: CLOPIDOGREL BISULFATE 75 MG TABLET (FP) PO SCH (10:40)
[2018-08-31] MEDS: NICOTINE 21 MG/24 HOURS TOPICAL PATCH TD SCH (10:41)
[2018-08-31] MEDS: CARVEDILOL 3.125 MG TABLET (FP) PO SCH (11:00)
--- NOTE | 2018-08-31 12:10 | EKG ---
Test Reason : Blood Pressure : / mmHG Vent. Rate : 092 BPM Atrial Rate : 092 BPM P-R Int : 144 ms QRS Dur : 128 ms QT Int : 362 ms P-R-T Axes : 053 062 -86 degrees QTc Int : 447 ms NORMAL SINUS RHYTHM NON-SPECIFIC INTRA-VENTRICULAR CONDUCTION BLOCK INFERIOR INFARCT (CITED ON OR BEFORE 17-DEC-2017) ABNORMAL ECG WHEN COMPARED WITH ECG OF 30-AUG-2018 13:07, PREMATURE VENTRICULAR COMPLEXES ARE NO LONGER PRESENT Confirmed by CRISTINA TERAN MD ([id number]) on 08/31/2018 12:10:43 PM Referred By: SILVINO ESCOTO Confirmed By:CRISTINA TERAN MD
--- NOTE | 2018-08-31 12:10 | EKG ---
Test Reason : Blood Pressure : / mmHG Vent. Rate : 087 BPM Atrial Rate : 087 BPM P-R Int : 138 ms QRS Dur : 128 ms QT Int : 368 ms P-R-T Axes : 060 055 -79 degrees QTc Int : 442 ms SINUS RHYTHM WITH OCCASIONAL PREMATURE VENTRICULAR COMPLEXES POSSIBLE LEFT ATRIAL ENLARGEMENT NON-SPECIFIC INTRA-VENTRICULAR CONDUCTION BLOCK INFERIOR INFARCT (CITED ON OR BEFORE 17-DEC-2017) T WAVE ABNORMALITY, CONSIDER LATERAL ISCHEMIA ABNORMAL ECG WHEN COMPARED WITH ECG OF 25-MAY-2018 10:36, NO SIGNIFICANT CHANGE WAS FOUND Confirmed by CRISTINA TERAN MD ([id number]) on 08/31/2018 12:10:34 PM Referred By: HAZEL WHEELER Confirmed By:CRISTINA TERAN MD
--- NOTE | 2018-08-31 13:46 | PN ---
[facility] CIWA - CIWA Score Nausea/Vomitin-No Nausea/No Vomiting Muscle Tremors: 3 Anxiety: 3 Agitation: 3 Paroxysmal Sweats: 3 Orientation: 0-Oriented Tacttile Disturbances: 0-None Auditory Disturbances: 0-None Visual Disturbances: 0-None Headache: 0-None Present CIWA-Ar Total Score: 12 S Progress Note (SOAP) Subjective: shakes sweats interrupted sleep body aches Objective: 08/31/18 13:45 Vital Signs Temperature 97.9 F 08/31/18 09:07 Pulse Rate 91 H 08/31/18 09:07 Respiratory Rate 18 08/31/18 09:07 Blood Pressure 119/60 08/31/18 09:07 O2 Sat by Pulse Oximetry (%) Laboratory Tests 08/30/18 08/30/18 08/30/18 13:44 14:00 14:00 WBC 10.3 H RBC 5.17 Hgb 13.2 Hct 40.7 D MCV 78.8 L MCH 25.6 L MCHC 32.4 RDW 18.5 H Plt Count 230 D MPV 8.7 Sodium 133 L Potassium 4.6 Chloride 99 Carbon Dioxide 26 Anion Gap 7 L BUN 15 Creatinine 0.7 Creat Clearance w eGFR 116.66 POC Glucometer 142 Random Glucose 110 H Calcium 9.4 Total Bilirubin 0.7 AST 35 ALT 43 Alkaline Phosphatase 109 Total Protein 7.5 Albumin 4.1 Urine Color Urine Appearance Urine pH Ur Specific [place] Urine Protein Urine Glucose (UA) Urine Ketones Urine Blood Urine Nitrite Urine Bilirubin Urine Urobilinogen Ur Leukocyte Esterase Urine WBC (Auto) Urine RBC (Auto) Urine Casts (Auto) U Epithel Cells (Auto) Urine Crystals (Auto) Urine Bacteria (Auto) RPR Titer 08/30/18 08/30/18 08/30/18 14:00 15:00 17:00 WBC RBC Hgb Hct MCV MCH MCHC RDW Plt Count MPV Sodium Potassium Chloride Carbon Dioxide Anion Gap BUN Creatinine Creat Clearance w eGFR POC Glucometer 110 Random Glucose Calcium Total Bilirubin AST ALT Alkaline Phosphatase Total Protein Albumin Urine Color Dk yellow Urine Appearance Clear Urine pH 5.5 Ur Specific [place] 1.026 Urine Protein 2+ H Urine Glucose (UA) Negative Urine Ketones 1+ H Urine Blood Negative Urine Nitrite Negative Urine Bilirubin Negative Urine Urobilinogen 0.2 Ur Leukocyte Esterase Negative Urine WBC (Auto) 1 Urine RBC (Auto) 5 Urine Casts (Auto) 16 U Epithel Cells (Auto) 2.4 Urine Crystals (Auto) Calcium oxalate 3+ Urine Bacteria (Auto) 1.0 RPR Titer Nonreactive 08/31/18 07:17 WBC RBC Hgb Hct MCV MCH MCHC RDW Plt Count MPV Sodium Potassium Chloride Carbon Dioxide Anion Gap BUN Creatinine Creat Clearance w eGFR POC Glucometer 148 Random Glucose Calcium Total Bilirubin AST ALT Alkaline Phosphatase Total Protein Albumin Urine Color Urine Appearance Urine pH Ur Specific [place] Urine Protein Urine Glucose (UA) Urine Ketones Urine Blood Urine Nitrite Urine Bilirubin Urine Urobilinogen Ur Leukocyte Esterase Urine WBC (Auto) Urine RBC (Auto) Urine Casts (Auto) U Epithel Cells (Auto) Urine Crystals (Auto) Urine Bacteria (Auto) RPR Titer aaox3 ambulating no acute distress labs noted repeat u/a Assessment: 08/31/18 13:46 withdrawal sx Plan: continue detox increase fluids
[2018-08-31] MEDS: TAMSULOSIN HCL 0.4 MG CAP PO SCH ×2 (22:06→23:50)
[2018-08-31] MEDS: ATORVASTATIN CA 20 MG TABLET (FP) PO SCH ×2 (22:06→23:51)
[2018-08-31] MEDS: THIAMINE HCL 100 MG TABLET (FP) PO SCH ×2 (22:06→23:51)
[2018-09-01] MEDS: chlordiazePOXIDE HCL 25 MG CAPSULE PO SCH ×2 (05:55→10:30)
[2018-09-01] MEDS: metFORMIN HCL 500 MG TABLET (FP) PO SCH (07:12)
[2018-09-01 09:17] VITALS: BP 116/65; PULSE 95; TEMP 97.9
[2018-09-01] MEDS: PRENATAL VITAMINS W/ FOLIC ACID TABLET (FP) PO SCH (10:00)
[2018-09-01] MEDS: NICOTINE 21 MG/24 HOURS TOPICAL PATCH TD SCH (10:00)
[2018-09-01] MEDS: CLOPIDOGREL BISULFATE 75 MG TABLET (FP) PO SCH (10:00)
[2018-09-01] MEDS: CARVEDILOL 3.125 MG TABLET (FP) PO SCH (10:00)
[2018-09-01] MEDS: LISINOPRIL 5 MG TABLET (FP) PO SCH (10:00)
[2018-09-01] MEDS: ASPIRIN COATED 81 MG TABLET.EC PO SCH (10:00)
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
[2018-09-01] MEDS ORDERED: chlordiazePOXIDE HCL 10 MG CAPSULE PO PRN (17:00)
[2018-09-01] MEDS ORDERED: chlordiazePOXIDE HCL 10 MG CAPSULE PO SCH (17:00)
[2018-09-02] MEDS ORDERED: chlordiazePOXIDE HCL 10 MG CAPSULE PO SCH (17:00)
== END 2018-09-01 10:20 | disposition left against medical advice (07) | DRG 894 ==
LOC: YASAS 11:57 → Y6N 14:16
PROVIDERS: ADMIT Surgery; ATTEND Surgery
PROC: HZ2ZZZZ Detoxification Services for Substance Abuse Treatment (ICD-10-PCS; principal; 2018-08-30)
DX: F10.230 Alcohol dependence with withdrawal, uncomplicated (principal); F14.20 Cocaine dependence, uncomplicated; C34.90 Malignant neoplasm of unspecified part of unspecified bronchus or lung; F11.23 Opioid dependence with withdrawal; I25.10 Atherosclerotic heart disease of native coronary artery without angina pectoris; I10 Essential (primary) hypertension; Z95.5 Presence of coronary angioplasty implant and graft; I25.2 Old myocardial infarction; Z95.810 Presence of automatic (implantable) cardiac defibrillator; K21.9 Gastro-esophageal reflux disease without esophagitis; E78.00 Pure hypercholesterolemia, unspecified; E11.9 Type 2 diabetes mellitus without complications; Z79.4 Long term (current) use of insulin; N40.0 Benign prostatic hyperplasia without lower urinary tract symptoms; G47.00 Insomnia, unspecified; R26.89 Other abnormalities of gait and mobility; Z99.89 Dependence on other enabling machines and devices
CPT/HCPCS: 36415; 80053; 81003; 82962; 85027; 86593; 93005; 93010

== ENCOUNTER 2018-10-02 08:20 | Inpatient (IN) | payer OTHER | END 2018-10-04 10:13 | disposition left against medical advice (07) | LOC: YASAS 08:20 → Y6N 10:33 ==

== ENCOUNTER 2019-05-31 10:35 | Inpatient (IN) | payer OTHER ==
[2019-05-31 19:09] VITALS: BMI 25.7
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
[2019-05-31] MEDS ORDERED: METHOCARBAMOL 500 MG TABLET PO PRN (20:49)
[2019-05-31] MEDS ORDERED: MAG HYDROX/AL HYDROX/SIMETH 30 ML UNIT-DOSE CUP PO PRN (20:49)
[2019-05-31] MEDS ORDERED: MAGNESIUM CITRATE 300 ML BOTTLE PO PRN (20:49)
[2019-05-31] MEDS ORDERED: IBUPROFEN 400 MG TABLET (FP) PO PRN (20:49)
[2019-05-31] MEDS ORDERED: ACETAMINOPHEN 325 MG TABLET (FP) PO PRN (20:49)
[2019-05-31] MEDS ORDERED: BISMUTH SUBSALICYLATE 524 MG/30 ML UD PO PRN (20:49)
[2019-05-31] MEDS ORDERED: MENTHOL/PHENOL 1 EACH UD MM PRN (20:49)
[2019-05-31] MEDS ORDERED: ONDANSETRON *ODT* 4 MG TABLET SL PRN (20:49)
[2019-05-31] MEDS ORDERED: MAGNESIUM HYDROX 2400MG/30ML ORAL SUSPENSION 30 ML CUP PO PRN (20:49)
[2019-05-31] MEDS ORDERED: P-EPHED 60MG/TRIPROLIDI 2.5MG TABLET PO PRN (20:49)
[2019-05-31] MEDS ORDERED: LORazepam 1 MG TABLET PO PRN (20:57)
[2019-05-31] MEDS ORDERED: LORazepam 1 MG TABLET PO ONE (20:57)
[2019-05-31] MEDS ORDERED: TIOTROPIUM BROMIDE 2.5 MCG (SPIRIVA) RESPIMAT INHALER IH PRN (21:04)
[2019-05-31] MEDS: LORazepam 1 MG TABLET PO SCH (22:02)
[2019-05-31] MEDS: PANTOPRAZOLE 40 MG TABLET PO SCH (22:03)
[2019-05-31] MEDS: ATORVASTATIN CA 20 MG TABLET (FP) PO SCH (22:03)
[2019-05-31] MEDS: MELATONIN 5 MG TABLETS PO PRN (22:03)
[2019-05-31] MEDS: THIAMINE HCL 100 MG TABLET (FP) PO SCH (22:03)
[2019-05-31] MEDS: ACETAMINOPHEN 325 MG TABLET (FP) PO PRN (23:21)
[2019-06-01] MEDS: LORazepam 1 MG TABLET PO SCH ×4 (05:11→22:00)
[2019-06-01] MEDS: ACETAMINOPHEN 325 MG TABLET (FP) PO PRN (05:11)
[2019-06-01] MEDS: metFORMIN HCL 500 MG TABLET (FP) PO SCH ×2 (07:17→17:17)
[2019-06-01] MEDS: guaiFENesin 200 MG/10 ML 10 ML UNIT-DOSE CUPS PO PRN (07:27)
[2019-06-01 09:46] LABS: HEMATOCRIT 39.6 % (35.4-49); HEMOGLOBIN 12.8 GM/dL (11.7-16.9); MCHC 32.3 g/dl (32.0-35.9); MEAN CELL VOLUME 83.7 fl (80-96); MEAN PLT VOLUME 8.3 fl (7.5-11.1); PLATELET COUNT 335 K/MM3 (134-434); RBC 4.73 M/mm3 (4.00-5.60); RDW 19.2 % (11.9-15.9); WHITE BLOOD COUNT 6.8 K/mm3 (4.0-10.0)
[2019-06-01 10:07] LABS: ALBUMIN 3.4 g/dl (3.4-5.0); BILIRUBIN,TOTAL 0.4 mg/dL (0.2-1); BLOOD UREA NITROGEN 15.7 mg/dL (7-18); CALCIUM 8.9 mg/dL (8.5-10.1); CREATININE 0.7 mg/dL (0.55-1.3); POTASSIUM 4.7 mmol/L (3.5-5.1); TOT PROT 6.9 g/dl (6.4-8.2)
[2019-06-01] MEDS: SPIRONOLACTONE 25 MG TABLET (FP) PO SCH (10:13)
[2019-06-01] MEDS: LISINOPRIL 5 MG TABLET (FP) PO SCH (10:15)
[2019-06-01] MEDS: PANTOPRAZOLE 40 MG TABLET PO SCH ×2 (10:15→21:58)
[2019-06-01] MEDS: ASPIRIN COATED 81 MG TABLET.EC PO SCH (10:16)
[2019-06-01] MEDS: CARVEDILOL 3.125 MG TABLET (FP) PO SCH (10:16)
[2019-06-01] MEDS: PRENATAL VITAMINS W/ FOLIC ACID TABLET (FP) PO SCH (10:17)
[2019-06-01] MEDS: TAMSULOSIN HCL 0.4 MG CAP PO SCH (10:20)
[2019-06-01] MEDS: TIOTROPIUM BROMIDE 2.5 MCG (SPIRIVA) RESPIMAT INHALER IH SCH (11:55)
[2019-06-01] MEDS: NICOTINE 21 MG/24 HOURS TOPICAL PATCH TD SCH (11:55)
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
--- NOTE | 2019-06-01 13:41 | EKG ---
Test Reason : Blood Pressure : / mmHG Vent. Rate : 102 BPM Atrial Rate : 102 BPM P-R Int : 140 ms QRS Dur : 132 ms QT Int : 368 ms P-R-T Axes : 060 071 265 degrees QTc Int : 479 ms SINUS TACHYCARDIA POSSIBLE LEFT ATRIAL ENLARGEMENT NON-SPECIFIC INTRA-VENTRICULAR CONDUCTION BLOCK INFERIOR INFARCT (CITED ON OR BEFORE 17-DEC-2017) ABNORMAL ECG WHEN COMPARED WITH ECG OF 31-MAY-2019 20:54, NO SIGNIFICANT CHANGE WAS FOUND Confirmed by NILSON FAULKNER MD ([id number]) on 06/01/2019 1:41:13 PM Referred By: Confirmed By:NILSON FAULKNER MD
--- NOTE | 2019-06-01 13:45 | EKG ---
Test Reason : Blood Pressure : / mmHG Vent. Rate : 096 BPM Atrial Rate : 096 BPM P-R Int : 136 ms QRS Dur : 128 ms QT Int : 378 ms P-R-T Axes : 069 065 263 degrees QTc Int : 477 ms POOR DATA QUALITY, INTERPRETATION MAY BE ADVERSELY AFFECTED NORMAL SINUS RHYTHM POSSIBLE LEFT ATRIAL ENLARGEMENT NON-SPECIFIC INTRA-VENTRICULAR CONDUCTION BLOCK INFERIOR INFARCT (CITED ON OR BEFORE 17-DEC-2017) NONSPECIFIC ST ABNORMALITY ABNORMAL ECG Confirmed by NILSON FAULKNER MD ([id number]) on 06/01/2019 1:45:28 PM Referred By: Confirmed By:NILSON FAULKNER MD
[2019-06-01] MEDS: BACITRACIN 15 GM TUBE TOPICAL OINTMENT TP SCH (14:12)
--- NOTE | 2019-06-01 15:09 | PN ---
S CIWA - CIWA Score Nausea/Vomitin Muscle Tremors: 2 Anxiety: 3 Agitation: 1-Slight > Activity Paroxysmal Sweats: 2 Orientation: 1-Uncertain about Date Tacttile Disturbances: 1-Very Mild Itch/Numbness Auditory Disturbances: 0-None Visual Disturbances: 1-Very Mild Sensitivity Headache: 1-Very Mild CIWA-Ar Total Score: 14 S Progress Note (SOAP) Subjective: Patient c/o of interrupted sleep, chills sweats Objective: 06/01/19 15:06 Vital Signs Temperature 96.5 F L 06/01/19 13:21 Pulse Rate 95 H 06/01/19 13:21 Respiratory Rate 18 06/01/19 13:21 Blood Pressure 141/91 06/01/19 13:21 O2 Sat by Pulse Oximetry (%) Laboratory Last Values WBC 6.8 K/mm3 (4.0-10.0) 06/01/19 07:30 RBC 4.73 M/mm3 (4.00-5.60) 06/01/19 07:30 Hgb 12.8 GM/dL (11.7-16.9) 06/01/19 07:30 Hct 39.6 % (35.4-49) 06/01/19 07:30 MCV 83.7 fl (80-96) 06/01/19 07:30 MCH 27.0 pg (25.7-33.7) 06/01/19 07:30 MCHC 32.3 g/dl (32.0-35.9) 06/01/19 07:30 RDW 19.2 % (11.9-15.9) H 06/01/19 07:30 Plt Count 335 K/MM3 (134-434) D 06/01/19 07:30 MPV 8.3 fl (7.5-11.1) D 06/01/19 07:30 Sodium 135 mmol/L (136-145) L 06/01/19 07:30 Potassium 4.7 mmol/L (3.5-5.1) 06/01/19 07:30 Chloride 102 mmol/L (98-107) 06/01/19 07:30 Carbon Dioxide 28 mmol/L (21-32) 06/01/19 07:30 Anion Gap 5 MMOL/L (8-16) L 06/01/19 07:30 BUN 15.7 mg/dL (7-18) 06/01/19 07:30 Creatinine 0.7 mg/dL (0.55-1.3) 06/01/19 07:30 Est GFR (CKD-EPI)AfAm 121.41 06/01/19 07:30 Est GFR (CKD-EPI)NonAf 104.76 06/01/19 07:30 POC Glucometer 115 UNITS (80-120) 06/01/19 05:13 Random Glucose 110 mg/dL (74-106) H 06/01/19 07:30 Calcium 8.9 mg/dL (8.5-10.1) 06/01/19 07:30 Total Bilirubin 0.4 mg/dL (0.2-1) 06/01/19 07:30 AST 39 U/L (15-37) H 06/01/19 07:30 ALT 52 U/L (13-61) 06/01/19 07:30 Alkaline Phosphatase 163 U/L (45-117) H 06/01/19 07:30 Total Protein 6.9 g/dl (6.4-8.2) 06/01/19 07:30 Albumin 3.4 g/dl (3.4-5.0) 06/01/19 07:30 Assessment: 06/01/19 15:06 Patient is Aox3 no acute distress , poor body odor EENT WNL , missing teeth Full ROM no gait disturbance withdrawal sx abnormal ekg hx of old infart and mild tachycardia on admission, v/s stable, patient reports hx of HI at age 43 yo with ICD placed Plan: increase fluids counselor to addressed for hygiene patient to follow up with architecture technician [facility] [place] Continue detox continue to monitor
[2019-06-01 17:50] LABS: ALBUMIN 3.3 g/dl (3.4-5.0); BILIRUBIN,TOTAL 0.4 mg/dL (0.2-1); BLOOD UREA NITROGEN 15.4 mg/dL (7-18); CREATININE 0.8 mg/dL (0.55-1.3); POTASSIUM 4.9 mmol/L (3.5-5.1)
[2019-06-01] MEDS: ALBUTEROL SO4 HFA INHALER IH PRN (18:27)
[2019-06-01] MEDS: hydrOXYzine PAMOATE 25 MG CAPSULE (FP) PO PRN (20:34)
[2019-06-01] MEDS: THIAMINE HCL 100 MG TABLET (FP) PO SCH (21:58)
[2019-06-01] MEDS: ATORVASTATIN CA 20 MG TABLET (FP) PO SCH (21:58)
[2019-06-01] MEDS: MELATONIN 5 MG TABLETS PO PRN (21:59)
[2019-06-02] MEDS: metFORMIN HCL 500 MG TABLET (FP) PO SCH ×2 (06:05→16:49)
[2019-06-02] MEDS: LORazepam 1 MG TABLET PO SCH ×4 (06:05→22:13)
[2019-06-02] MEDS: BACITRACIN 15 GM TUBE TOPICAL OINTMENT TP SCH (10:17)
[2019-06-02] MEDS: PRENATAL VITAMINS W/ FOLIC ACID TABLET (FP) PO SCH (10:17)
[2019-06-02] MEDS: LISINOPRIL 5 MG TABLET (FP) PO SCH (10:17)
[2019-06-02] MEDS: CARVEDILOL 3.125 MG TABLET (FP) PO SCH (10:19)
[2019-06-02] MEDS: TAMSULOSIN HCL 0.4 MG CAP PO SCH (10:19)
[2019-06-02] MEDS: FLUoxetine HCL 20 MG CAPSULE PO SCH (10:19)
[2019-06-02] MEDS: PANTOPRAZOLE 40 MG TABLET PO SCH ×2 (10:20→22:13)
[2019-06-02] MEDS: SPIRONOLACTONE 25 MG TABLET (FP) PO SCH (10:20)
[2019-06-02] MEDS: TIOTROPIUM BROMIDE 2.5 MCG (SPIRIVA) RESPIMAT INHALER IH SCH (10:20)
[2019-06-02] MEDS: ASPIRIN COATED 81 MG TABLET.EC PO SCH (10:20)
[2019-06-02] MEDS: NICOTINE 21 MG/24 HOURS TOPICAL PATCH TD SCH (10:21)
--- NOTE | 2019-06-02 12:28 | PN ---
S CIWA - CIWA Score Nausea/Vomitin-No Nausea/No Vomiting Muscle Tremors: 2 Anxiety: 3 Agitation: 0-Normal Activity Paroxysmal Sweats: 3 Orientation: 0-Oriented Tacttile Disturbances: 0-None Auditory Disturbances: 0-None Visual Disturbances: 0-None Headache: 2-Mild CIWA-Ar Total Score: 10 BHS Progress Note (SOAP) Subjective: c/o sweats, anxiety, shakes, and headache. Objective: 06/02/19 12:27 Vital Signs 06/02/19 06/02/19 06:25 09:15 Temperature 97.4 F L 97.7 F Pulse Rate 93 H 96 H Respiratory 18 18 Rate Blood Pressure 146/88 144/97 Laboratory Last Values WBC 6.8 K/mm3 (4.0-10.0) 06/01/19 07:30 RBC 4.73 M/mm3 (4.00-5.60) 06/01/19 07:30 Hgb 12.8 GM/dL (11.7-16.9) 06/01/19 07:30 Hct 39.6 % (35.4-49) 06/01/19 07:30 MCV 83.7 fl (80-96) 06/01/19 07:30 MCH 27.0 pg (25.7-33.7) 06/01/19 07:30 MCHC 32.3 g/dl (32.0-35.9) 06/01/19 07:30 RDW 19.2 % (11.9-15.9) H 06/01/19 07:30 Plt Count 335 K/MM3 (134-434) D 06/01/19 07:30 MPV 8.3 fl (7.5-11.1) D 06/01/19 07:30 Sodium 136 mmol/L (136-145) 06/01/19 15:03 Potassium 4.9 mmol/L (3.5-5.1) 06/01/19 15:03 Chloride 103 mmol/L (98-107) 06/01/19 15:03 Carbon Dioxide 28 mmol/L (21-32) 06/01/19 15:03 Anion Gap 5 MMOL/L (8-16) L 06/01/19 15:03 BUN 15.4 mg/dL (7-18) 06/01/19 15:03 Creatinine 0.8 mg/dL (0.55-1.3) 06/01/19 15:03 Est GFR (CKD-EPI)AfAm 114.93 06/01/19 15:03 Est GFR (CKD-EPI)NonAf 99.16 06/01/19 15:03 POC Glucometer 121 UNITS (80-120) 06/02/19 06:06 Random Glucose 119 mg/dL (74-106) H 06/01/19 15:03 Calcium 9.0 mg/dL (8.5-10.1) 06/01/19 15:03 Total Bilirubin 0.4 mg/dL (0.2-1) 06/01/19 15:03 AST 37 U/L (15-37) 06/01/19 15:03 ALT 52 U/L (13-61) 06/01/19 15:03 Alkaline Phosphatase 163 U/L (45-117) H 06/01/19 15:03 Total Protein 7.0 g/dl (6.4-8.2) 06/01/19 15:03 Albumin 3.3 g/dl (3.4-5.0) L 06/01/19 15:03 RPR Titer Nonreactive (NONREACTIVE) 06/01/19 07:30 Labs noted. Assessment: 06/02/19 12:28 AOX3, in no acute respiratory distress. Full ROM, ambulating in the unit. Withdrawal symptoms. Plan: continue detox.
[2019-06-02] MEDS: ACETAMINOPHEN 325 MG TABLET (FP) PO PRN (13:25)
[2019-06-02] MEDS: hydrOXYzine PAMOATE 25 MG CAPSULE (FP) PO PRN ×2 (16:49→22:13)
[2019-06-02] MEDS: guaiFENesin 200 MG/10 ML 10 ML UNIT-DOSE CUPS PO PRN (20:38)
[2019-06-02] MEDS: MELATONIN 5 MG TABLETS PO PRN (22:13)
[2019-06-02] MEDS: THIAMINE HCL 100 MG TABLET (FP) PO SCH (22:13)
[2019-06-02] MEDS: ATORVASTATIN CA 20 MG TABLET (FP) PO SCH (22:13)
[2019-06-03] MEDS ORDERED: LORazepam 0.5 MG TABLET PO PRN
[2019-06-03] MEDS: metFORMIN HCL 500 MG TABLET (FP) PO SCH ×2 (06:08→15:14)
[2019-06-03] MEDS: LORazepam 0.5 MG TABLET PO SCH ×4 (06:08→22:03)
[2019-06-03] MEDS: TAMSULOSIN HCL 0.4 MG CAP PO SCH (10:17)
[2019-06-03] MEDS: SPIRONOLACTONE 25 MG TABLET (FP) PO SCH (10:17)
[2019-06-03] MEDS: ASPIRIN COATED 81 MG TABLET.EC PO SCH (10:17)
[2019-06-03] MEDS: TIOTROPIUM BROMIDE 2.5 MCG (SPIRIVA) RESPIMAT INHALER IH SCH (10:17)
[2019-06-03] MEDS: PANTOPRAZOLE 40 MG TABLET PO SCH ×2 (10:18→22:02)
[2019-06-03] MEDS: LISINOPRIL 5 MG TABLET (FP) PO SCH (10:18)
[2019-06-03] MEDS: FLUoxetine HCL 20 MG CAPSULE PO SCH (10:18)
[2019-06-03] MEDS: PRENATAL VITAMINS W/ FOLIC ACID TABLET (FP) PO SCH (10:18)
[2019-06-03] MEDS: NICOTINE 21 MG/24 HOURS TOPICAL PATCH TD SCH (10:20)
[2019-06-03] MEDS: BACITRACIN 15 GM TUBE TOPICAL OINTMENT TP SCH (10:20)
[2019-06-03] MEDS: CARVEDILOL 3.125 MG TABLET (FP) PO SCH (10:21)
--- NOTE | 2019-06-03 12:25 | PN ---
[facility] CIWA - CIWA Score Nausea/Vomitin-No Nausea/No Vomiting Muscle Tremors: 2 Anxiety: 2 Agitation: 1-Slight > Activity Paroxysmal Sweats: No Perspiration Orientation: 0-Oriented Tacttile Disturbances: 0-None Auditory Disturbances: 0-None Visual Disturbances: 0-None Headache: 0-None Present CIWA-Ar Total Score: 5 BHS Progress Note (SOAP) Subjective: 58 years old male admitted on 05/31/19 for alcohol withdrawal sx management treating with ativan detox regimen feeling better today ate breakfast and lunch less tremor mild anxiety discussed aftercare with staff Objective: 06/03/19 12:24 Vital Signs Temperature 97.5 F L 06/03/19 09:31 Pulse Rate 93 H 06/03/19 09:31 Respiratory Rate 20 06/03/19 09:31 Blood Pressure 113/67 06/03/19 09:31 O2 Sat by Pulse Oximetry (%) Laboratory Last Values WBC 6.8 K/mm3 (4.0-10.0) 06/01/19 07:30 RBC 4.73 M/mm3 (4.00-5.60) 06/01/19 07:30 Hgb 12.8 GM/dL (11.7-16.9) 06/01/19 07:30 Hct 39.6 % (35.4-49) 06/01/19 07:30 MCV 83.7 fl (80-96) 06/01/19 07:30 MCH 27.0 pg (25.7-33.7) 06/01/19 07:30 MCHC 32.3 g/dl (32.0-35.9) 06/01/19 07:30 RDW 19.2 % (11.9-15.9) H 06/01/19 07:30 Plt Count 335 K/MM3 (134-434) D 06/01/19 07:30 MPV 8.3 fl (7.5-11.1) D 06/01/19 07:30 Sodium 136 mmol/L (136-145) 06/01/19 15:03 Potassium 4.9 mmol/L (3.5-5.1) 06/01/19 15:03 Chloride 103 mmol/L (98-107) 06/01/19 15:03 Carbon Dioxide 28 mmol/L (21-32) 06/01/19 15:03 Anion Gap 5 MMOL/L (8-16) L 06/01/19 15:03 BUN 15.4 mg/dL (7-18) 06/01/19 15:03 Creatinine 0.8 mg/dL (0.55-1.3) 06/01/19 15:03 Est GFR (CKD-EPI)AfAm 114.93 06/01/19 15:03 Est GFR (CKD-EPI)NonAf 99.16 06/01/19 15:03 POC Glucometer 124 UNITS (80-120) 06/03/19 06:10 Random Glucose 119 mg/dL (74-106) H 06/01/19 15:03 Calcium 9.0 mg/dL (8.5-10.1) 06/01/19 15:03 Total Bilirubin 0.4 mg/dL (0.2-1) 06/01/19 15:03 AST 37 U/L (15-37) 06/01/19 15:03 ALT 52 U/L (13-61) 06/01/19 15:03 Alkaline Phosphatase 163 U/L (45-117) H 06/01/19 15:03 Total Protein 7.0 g/dl (6.4-8.2) 06/01/19 15:03 Albumin 3.3 g/dl (3.4-5.0) L 06/01/19 15:03 RPR Titer Nonreactive (NONREACTIVE) 06/01/19 07:30 lab noted Assessment: 06/03/19 12:24 alcohol withdrawal Plan: ativan regimen
[2019-06-03] MEDS: guaiFENesin 200 MG/10 ML 10 ML UNIT-DOSE CUPS PO PRN (12:49)
[2019-06-03] MEDS: ACETAMINOPHEN 325 MG TABLET (FP) PO PRN (17:20)
[2019-06-03] MEDS: ATORVASTATIN CA 20 MG TABLET (FP) PO SCH (22:02)
[2019-06-03] MEDS: THIAMINE HCL 100 MG TABLET (FP) PO SCH (22:02)
[2019-06-03] MEDS: MELATONIN 5 MG TABLETS PO PRN (22:03)
[2019-06-04] MEDS: ALBUTEROL SO4 HFA INHALER IH PRN (03:31)
[2019-06-04] MEDS: guaiFENesin 200 MG/10 ML 10 ML UNIT-DOSE CUPS PO PRN (03:31)
[2019-06-04] MEDS ORDERED: LORazepam 0.5 MG TABLET PO ONE (05:00)
[2019-06-04] MEDS: metFORMIN HCL 500 MG TABLET (FP) PO SCH (08:01)
[2019-06-04 09:27] VITALS: BP 117/71; PULSE 84; TEMP 96.9
--- NOTE | 2019-06-04 09:59 | DS ---
[facility] Detox Discharge Summary Admission Date: 05/31/19 Discharge Date: 06/04/19 - History Present History: Alcohol Dependence Additional Comments: 58 years old male admitted on 05/31/19 for alcohol withdrawal sx management treated with ativan detox regiment patient has completed the ativan regiment and tolerated well alert oriented x 3 seen by psychiatrist resume prozac respiratory clear lungs bilaterally on auscultation extremities full range of motion skin warm and dry - Physical Exam Results Vital Signs: Vital Signs Temperature 96.9 F L 06/04/19 09:26 Pulse Rate 84 06/04/19 09:26 Respiratory Rate 18 06/04/19 09:26 Blood Pressure 117/71 06/04/19 09:26 O2 Sat by Pulse Oximetry (%) Pertinent Admission Physical Exam Findings: alcohol withdrawal Laboratory Last Values WBC 6.8 K/mm3 (4.0-10.0) 06/01/19 07:30 RBC 4.73 M/mm3 (4.00-5.60) 06/01/19 07:30 Hgb 12.8 GM/dL (11.7-16.9) 06/01/19 07:30 Hct 39.6 % (35.4-49) 06/01/19 07:30 MCV 83.7 fl (80-96) 06/01/19 07:30 MCH 27.0 pg (25.7-33.7) 06/01/19 07:30 MCHC 32.3 g/dl (32.0-35.9) 06/01/19 07:30 RDW 19.2 % (11.9-15.9) H 06/01/19 07:30 Plt Count 335 K/MM3 (134-434) D 06/01/19 07:30 MPV 8.3 fl (7.5-11.1) D 06/01/19 07:30 Sodium 136 mmol/L (136-145) 06/01/19 15:03 Potassium 4.9 mmol/L (3.5-5.1) 06/01/19 15:03 Chloride 103 mmol/L (98-107) 06/01/19 15:03 Carbon Dioxide 28 mmol/L (21-32) 06/01/19 15:03 Anion Gap 5 MMOL/L (8-16) L 06/01/19 15:03 BUN 15.4 mg/dL (7-18) 06/01/19 15:03 Creatinine 0.8 mg/dL (0.55-1.3) 06/01/19 15:03 Est GFR (CKD-EPI)AfAm 114.93 06/01/19 15:03 Est GFR (CKD-EPI)NonAf 99.16 06/01/19 15:03 POC Glucometer 148 UNITS (80-120) 06/03/19 16:26 Random Glucose 119 mg/dL (74-106) H 06/01/19 15:03 Calcium 9.0 mg/dL (8.5-10.1) 06/01/19 15:03 Total Bilirubin 0.4 mg/dL (0.2-1) 06/01/19 15:03 AST 37 U/L (15-37) 06/01/19 15:03 ALT 52 U/L (13-61) 06/01/19 15:03 Alkaline Phosphatase 163 U/L (45-117) H 06/01/19 15:03 Total Protein 7.0 g/dl (6.4-8.2) 06/01/19 15:03 Albumin 3.3 g/dl (3.4-5.0) L 06/01/19 15:03 RPR Titer Nonreactive (NONREACTIVE) 06/01/19 07:30 lab noted - Treatment Hospital Course: Detox Protocol Followed, Detoxed Safely, Responded well, Discharged Condition Good, Rehab Referral Accepted Patient has Accepted [facility] Ref[facility] - Medication Discharge Medications: Ambulatory Orders Fluoxetine HCl [Prozac] 20 mg PO DAILY 12/17/17 Multivitamin [Multiple Vitamins] 1 tablet PO DAILY 04/09/18 Pantoprazole Sodium [Protonix] 40 mg PO BID 04/09/18 Umeclidinium [place] [Incruse Ellipta] 1 puff PO DAILY 04/09/18 Thiamine HCl [Vitamin B-1] 100 mg PO DAILY 05/24/18 Albuterol Sulfate Inhaler - [Ventolin HFA Inhaler -] 2 inh PO Q6H PRN #1 inhaler 05/28/18 Atorvastatin Ca [Lipitor] 20 mg PO HS #14 tablet 05/28/18 Carvedilol [Coreg -] 3.125 mg PO DAILY #14 tablet 05/28/18 Lisinopril [Zestril] 2.5 mg PO DAILY #14 tablet 05/28/18 Metformin HCl [Glucophage] 500 mg PO BID #30 tablet 05/28/18 Nitroglycerin [Nitrostat] 0.4 mg SL [id number] PRN #10 tab.subl 05/28/18 Aspirin Coated [Ecotrin -] 81 mg PO DAILY 14 Days #14 tablet.ec 05/29/18 Gabapentin 300 mg PO TID 05/31/19 Spironolactone [Aldactone -] 25 mg PO DAILY 05/31/19 Tamsulosin HCl [Flomax] 0.4 cap PO HS 05/31/19 Tiotropium [place] [Spiriva Respimat] 1 puff IH PRN PRN 05/31/19 - Diagnosis (1) Alcohol dependence with uncomplicated withdrawal Status: Acute (2) AICD (automatic cardioverter/defibrillator) present Status: Chronic (3) BPH (benign prostatic hyperplasia) Status: Chronic Qualifiers: Lower urinary tract symptom presence: symptoms absent Qualified Code(s): N40.0 - Benign prostatic hyperplasia without lower urinary tract symptoms (4) DM2 (diabetes mellitus, type 2) Status: Chronic Qualifiers: Diabetes mellitus joint terminal attack controller insulin use: with half-way use Diabetes mellitus complication status: without complication Qualified Code(s): E11.9 - Type 2 diabetes mellitus without complications; Z79.4 - FPC (current) use of insulin (5) HLD (hyperlipidemia) Status: Chronic Qualifiers: Hyperlipidemia type: pure hypertriglyceridemia Qualified Code(s): E78.1 - Pure hyperglyceridemia (6) HTN (hypertension) Status: Chronic Qualifiers: Hypertension type: essential hypertension Qualified Code(s): I10 - Essential (primary) hypertension (7) Nicotine dependence Status: Acute Qualifiers: Nicotine product type: cigarettes Substance use status: in withdrawal Qualified Code(s): F17.213 - Nicotine dependence, cigarettes, with withdrawal (8) Substance induced mood disorder Status: Suspected - AMA Did Patient Leave Against Medical Advice: No CIWA Score - CIWA Score Nausea/Vomitin-No Nausea/No Vomiting Muscle Tremors: 1-None Visible, but [place] Anxiety: 1-Mildly Anxious Agitation: 0-Normal Activity Paroxysmal Sweats: No Perspiration Orientation: 0-Oriented Tacttile Disturbances: 0-None Auditory Disturbances: 0-None Visual Disturbances: 0-None Headache: 0-None Present CIWA-Ar Total Score: 2
[2019-06-04] MEDS: FLUoxetine HCL 20 MG CAPSULE PO SCH (10:02)
[2019-06-04] MEDS: SPIRONOLACTONE 25 MG TABLET (FP) PO SCH (10:02)
[2019-06-04] MEDS: TAMSULOSIN HCL 0.4 MG CAP PO SCH (10:02)
[2019-06-04] MEDS: CARVEDILOL 3.125 MG TABLET (FP) PO SCH (10:02)
[2019-06-04] MEDS: ASPIRIN COATED 81 MG TABLET.EC PO SCH (10:02)
[2019-06-04] MEDS: LISINOPRIL 5 MG TABLET (FP) PO SCH (10:02)
[2019-06-04] MEDS: PANTOPRAZOLE 40 MG TABLET PO SCH (10:02)
[2019-06-04] MEDS: NICOTINE 21 MG/24 HOURS TOPICAL PATCH TD SCH (10:03)
[2019-06-04] MEDS: BACITRACIN 15 GM TUBE TOPICAL OINTMENT TP SCH (10:03)
[2019-06-04] MEDS: PRENATAL VITAMINS W/ FOLIC ACID TABLET (FP) PO SCH (10:03)
[2019-06-04] MEDS: TIOTROPIUM BROMIDE 2.5 MCG (SPIRIVA) RESPIMAT INHALER IH SCH (10:05)
== END 2019-06-04 11:44 | disposition home or self-care (01) | DRG 897 ==
LOC: YASAS 10:35 → Y3N 21:29
PROVIDERS: ADMIT Allergy & Immunology; ATTEND Allergy & Immunology
PROC: HZ2ZZZZ Detoxification Services for Substance Abuse Treatment (ICD-10-PCS; principal; 2019-05-31)
DX: F10.230 Alcohol dependence with withdrawal, uncomplicated (principal); F31.81 Bipolar II disorder; C34.90 Malignant neoplasm of unspecified part of unspecified bronchus or lung; F10.282 Alcohol dependence with alcohol-induced sleep disorder; F17.213 Nicotine dependence, cigarettes, with withdrawal; F19.24 Other psychoactive substance dependence with psychoactive substance-induced mood disorder; I10 Essential (primary) hypertension; E11.9 Type 2 diabetes mellitus without complications; E78.1 Pure hyperglyceridemia; N40.0 Benign prostatic hyperplasia without lower urinary tract symptoms; K21.9 Gastro-esophageal reflux disease without esophagitis; R94.31 Abnormal electrocardiogram [ECG] [EKG]; I25.10 Atherosclerotic heart disease of native coronary artery without angina pectoris; I25.2 Old myocardial infarction; R00.0 Tachycardia, unspecified; R01.1 Cardiac murmur, unspecified; J44.9 Chronic obstructive pulmonary disease, unspecified; Z91.14 Patient's other noncompliance with medication regimen; Z89.412 Acquired absence of left great toe; Z95.810 Presence of automatic (implantable) cardiac defibrillator; Z79.4 Long term (current) use of insulin; Z95.5 Presence of coronary angioplasty implant and graft; Z88.8 Allergy status to other drugs, medicaments and biological substances
CPT/HCPCS: 36415; 80053; 82962; 85027; 86593; 93005; 93010